=== PATIENT | female | born 1940 ===

== ENCOUNTER 2017-10-21 14:39 | Inpatient (IN) ==
[~2017-10-21 14:39] MED LIST: Metoprolol Tartrate 25 MG Tablet PO SCH
[2017-10-21] MEDS ORDERED: Zolpidem Tartrate 5 MG Tablet PO PRN (18:29)
[2017-10-21] MEDS ORDERED: Insulin Regular (For Infusion) 100 UNIT in Sodium Chlor 0.9% Inj 99 ML IV.CONT PRN (18:33)
[2017-10-21] MEDS ORDERED: Dextrose 50% in Water 50 ML Vial IV.PUSH PRN ×2 (18:33→19:48)
[2017-10-21] MEDS ORDERED: DILTIAZEM IRRIGATION SCH ×2 (18:45)
[2017-10-21] MEDS ORDERED: NITROGLYCERIN IRRIGATION SCH ×2 (18:45)
[2017-10-21] MEDS ORDERED: SODIUM CHLOR 0.9% IRRIGATION SCH ×2 (18:45)
[2017-10-21] MEDS ORDERED: Chlorhexidine 4% Topical 120 APPLIC/120 ML Bottle TOPICAL SCH (18:45)
[2017-10-21] MEDS ORDERED: Sodium Chloride 0.9% Irr Bot 500 ML, ceFAZolin Inj 500 MG IRRIGATION SCH ×2 (18:45)
[2017-10-21] MEDS ORDERED: ceFAZolin 2 GM Premix Inj 2 GM/50 ML PIGGYBACK IV.SIG SCH (19:00)
[2017-10-21] MEDS: Insulin NovoLOG Aspart Correctional Sugar Inj SQ SCH (20:49)
[2017-10-22 03:29] LABS: Bilirubin,Urine Negative (Negative); Clarity,Urine Clear (Clear); Color,Urine Yellow (Yellw/Straw); Glucose,Urine (UA) Negative (Negative); Leukocyte Esterase,Urine Trace (Negative); Mucus,Urine Few /lpf (Occasional); Nitrite,Urine Negative (Negative); Squamous Epithelial Cell,Urine 1 /hpf (0-5)
[2017-10-22] MEDS: Metoprolol Tartrate 25 MG Tablet PO SCH ×3 (03:38→21:58)
[2017-10-22 04:09] LABS: Baso % (Auto) 0.6 % (0.0-2.0); Eos # (Auto) 0.2 th/mm3 (0.0-0.4); Hematocrit 32.4 % (35.0-46.0); Hemoglobin 10.8 gm/dL (11.6-15.3); Lymph # (Auto) 1.2 th/mm3 (1.0-4.8); Lymph % (Auto) 23.1 % (9.0-44.0); Mean Corpuscular HGB Conc 33.5 % (32.0-36.0); Mean Corpuscular Volume 80.6 fL (80.0-100.0); Mean Platelet Volume 9.8 fL (7.0-11.0); Mono # (Auto) 0.5 th/mm3 (0.0-0.9); Mono % (Auto) 10.1 % (0.0-8.0); Neut # (Auto) 3.4 th/mm3 (1.8-7.7); Neut % (Auto) 63.2 % (16.0-70.0); Platelet Count 123 th/mm3 (150-450); Red Blood Count 4.02 mil/mm3 (4.00-5.30); Red Cell Distribution Width 16.2 % (11.6-17.2); White Blood Count 5.4 th/mm3 (4.0-11.0)
[2017-10-22 04:23] LABS: Alanine Aminotransferase 16 U/L (10-53); Albumin 3.3 g/dL (3.4-5.0); Anion Gap 9 meq/L (5-15); Aspartate Aminotransferase 19 U/L (15-37); Blood Urea Nitrogen 24 mg/dL (7-18); Calcium 8.4 mg/dL (8.5-10.1); Chloride 105 meq/L (98-107); Glomerular Filtration Rate 45 mL/min (>89); Glucose,Random 85 mg/dL (74-106); Potassium 3.6 meq/L (3.5-5.1); Sodium 142 meq/L (136-145)
[2017-10-22 04:25] LABS: Alkaline Phosphatase 79 U/L (45-117); Total Protein 6.2 g/dL (6.4-8.2)
[2017-10-22] MEDS: Levothyroxine 50 MCG Tablet PO SCH (06:49)
[2017-10-22] MEDS ORDERED: Furosemide 20 MG Tablet PO SCH (09:00)
[2017-10-22] MEDS ORDERED: Enoxaparin Inj 30 MG/0.3 ML Syringe SQ SCH (09:00)
[2017-10-22] MEDS ORDERED: amLODIPine 10 MG Tablet PO SCH (09:00)
[2017-10-22] MEDS: Escitalopram 10 MG Tablet PO SCH (09:53)
[2017-10-22] MEDS: Docusate Sodium 100 MG Capsule PO SCH (09:54)
[2017-10-22] MEDS: Insulin NovoLOG Aspart Correctional Sugar Inj SQ SCH ×3 (09:56→17:31)
[2017-10-22] MEDS: glipiZIDE 5 MG Tablet PO SCH ×2 (10:00→17:27)
[2017-10-22] MEDS: LORazepam 0.5 MG Tablet PO PRN ×2 (10:00→21:56)
[2017-10-22] MEDS ORDERED: Dextrose 50% in Water 50 ML Vial IV.PUSH PRN (10:19)
[2017-10-22] MEDS ORDERED: Chlorhexidine 4% Topical 120 APPLIC/120 ML Bottle TOPICAL SCH (10:30)
[2017-10-22] MEDS ORDERED: Insulin Regular (For Infusion) 100 UNIT in Sodium Chlor 0.9% Inj 99 ML IV.CONT PRN (12:00)
[2017-10-22 16:32] LABS: Hemoglobin A1c 6.2 % (4.3-6.0)
--- NOTE | 2017-10-22 16:43 | MB ---
cc: Kourtney Mejia MD, Jacqueline R ARNP DATE: 10/22/2017 HISTORY OF PRESENT ILLNESS: A 77-year-old patient of Dr. Alondra Preston, Dr. Abdi from [place]. The patient apparently has had symptoms of shortness of breath, not feeling well, had some nausea and palpitations for the past 1 month. She has a history of hypothyroidism. She has had her levothyroxine adjusted. She has been also feeling fatigued and weak for over a week. Apparently, she was very sleepy. The son brought her into Dr. Preston' office. EKG showed new onset of atrial fibrillation. She had again been complaining of the palpitations and was concerned that it may have been due to her elevated free T4. She underwent evaluation at [facility], which included 2-D echocardiogram, which showed an EF of 50-55%, mild LVH. The aortic valve was calcified with possible mild to moderate stenosis. The mitral valve had severe mitral stenosis, concern for mitral valve stenosis and severe mitral regurgitation, moderate tricuspid regurgitation. RV systolic pressure is 52. CHET showed severe mitral regurgitation, moderate with aortic valve of 1.3, mild to moderate aortic insufficiency. She underwent cardiac catheterization, which showed nonobstructive coronary disease, severe mitral regurgitation, elevated RV pressures. The right atrium was 25. Pulmonary capillary wedge pressure was 50. PA pressure 52/30. Cardiac output of 3.4 with an index of 1.7. The patient was transferred as per the request to be evaluated by Dr. Kourtney Mejia. PAST MEDICAL HISTORY: New onset of atrial fibrillation, some severe mitral regurgitation with some mitral stenosis, aortic stenosis, moderate tricuspid regurgitation, elevated PA pressures, hypothyroidism, diabetes mellitus on oral medication and some subcutaneous medication, obstructive sleep apnea. She uses a CPAP machine. Esophagitis, anxiety, hyperlipidemia, osteoarthritis, depression. PAST SURGICAL HISTORY: Left thyroidectomy in 2006, hysterectomy, bilateral total knee replacements, cholecystectomy, lymph node resection with benign pathology. ALLERGIES: NO KNOWN ALLERGY. SOCIAL HISTORY: The patient is and lives alone, has 2 children, 1 son lives nearby. No tobacco, no alcohol. FAMILY HISTORY: Mother from colon cancer. Father had an [place] at 70, of alcoholism. HOME MEDICATIONS: 1. Norvasc. 2. Lexapro. 3. Glipizide. 4. Hydralazine 5. Toujeo 5. Levothyroxine. 6. Losartan. 7. Metoprolol. 8. Omeprazole. 9. Oxybutynin. 10. Dyazide. REVIEW OF SYSTEMS: As above in the HPI, 12 systems unremarkable. PHYSICAL EXAMINATION: VITAL SIGNS: Blood pressure 160/70, heart rate of 70, afebrile. GENERAL: The patient is awake, alert in no acute distress. HEENT: Head is normocephalic, atraumatic. Pupils equal and reactive. Oral mucosa pink, moist. NECK: Supple. No JVD. HEART: Sounds S1, S2. Regular rate and rhythm. There is a systolic murmur best heard on the left sternal border, also with soft systolic murmur. LUNGS: Clear to auscultation. No wheezes, rales or rhonchi. ABDOMEN: Obese, soft, nontender, no masses or organomegaly. EXTREMITIES: No cyanosis, clubbing or edema. NEUROLOGIC: Cranial nerves 2-12 intact. LABORATORY DATA: Shows hemoglobin 10, hematocrit of 32, white cell count of 5.4, platelet count of 123. Creatinine 1.17. Sodium 142, potassium 3.6. Glucose has been elevated at 174. Hemoglobin A1c pending. AST 19, ALT 16. Urine is unremarkable. MRSA screen pending. IMAGING STUDIES: Radiological exams pending. IMPRESSION: This is a 77-year-old female with mitral valve and aortic valve disease. The films have been evaluated by Dr. Kourtney Mejia, evaluation for a mitral valve replacement versus repair and possible aortic valve replacement with MAZE procedure. The procedures, alternatives and risks discussed with the patient. The patient is agreeable to proceed. We will proceed in the a.m. MD MERCY An/ , 04:15 PM , 04:41 PM
--- NOTE | 2017-10-22 16:56 | XR ---
EXAM DATE: 10/22/2017 4:33 PM EDT AGE/SEX: 77 years / Female INDICATIONS: Evaluate for pneumonia, pneumothorax, or communicable disease. Pre op sternotomy. CLINICAL DATA: This is the patient's initial encounter. Patient reports that signs and symptoms have been present for 1 day and indicates a pain score of 0/10. MEDICAL/SURGICAL HISTORY: None. None. COMPARISON: No prior exams available for comparison. FINDINGS: The heart size is borderline enlarged. The lungs are free of focal consolidation. There is some mild prominence of interstitium which may represent some pulmonary venous hypertension. No effusion is se en. Vascular calcifications are seen. 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 CONCLUSION: Borderline cardiomegaly. Prominence of the interstitium which may represent some pulmonary venous hypertension. Electronically signed by: Jesse Ibarra MD 10/22/2017 4:54 PM EDT
[2017-10-22 17:30] LABS: INR 1.1 Ratio
--- NOTE | 2017-10-22 20:57 | US ---
EXAM DATE: 10/22/2017 8:32 PM EDT AGE/SEX: 77 years / Female INDICATIONS: Pre-op cardiac surgery. CLINICAL DATA: This is the patient's initial encounter. Patient reports that signs and symptoms have been present for 1 day and indicates a pain score of 0/10. MEDICAL/SURGICAL HISTORY: Heart disease. None. COMPARISON: No prior exams available for comparison. VELOCITY PARAMETERS: ICA/CCA Ratio: Right 1.56 , Left 1.68 ICA: Right 73 cm/sec, Left 94 cm/sec CCA: Right 47 cm/sec, Left 56 cm/sec ECA: Right 43 cm/sec, Left 35 cm/sec Vertebral: Right 45 cm/sec antegrade, Left 58 cm/sec antegrade FINDINGS: Right Carotid: There is minimal plaque in the carotid bulb.The waveforms are within normal limits. Left Carotid: There is minimal plaque in the carotid bulb. The waveforms are within normal limits. Other: None. CONCLUSION: 1. Right Internal Carotid Artery: Findings indicate <50% stenosis. 2. Left Internal Carotid Artery: Findings indicate <50% stenosis. Electronically signed by: Jesse Clemens MD 10/22/2017 8:56 PM EDT
[2017-10-23] MEDS ORDERED: Heparin - SQ 10,000 UNITS/ML Vial SQ ONE ×2 (06:38→13:21)
[2017-10-23] MEDS ORDERED: ceFAZolin 2 GM Premix Inj 2 GM/50 ML PIGGYBACK IV.SIG ONE (06:39)
[2017-10-23] MEDS ORDERED: CUST1000P IRRIGATION ONE (07:12)
[2017-10-23] MEDS ORDERED: Albumin Human 25% Inj 50 ML IV.SIG ONE (07:13)
[2017-10-23] MEDS ORDERED: Calcium Chloride Inj 1 GM/10 ML Syringe ONE (07:14)
[2017-10-23] MEDS ORDERED: Heparin 10,000 UNITS/10 ML Vial (for IV use) ONE (07:14)
[2017-10-23] MEDS ORDERED: MethylPREDNISolone Sod Succinate Inj 125 MG/2 ML Vial ONE (08:10)
[2017-10-23] MEDS ORDERED: ceFAZolin Inj 500 MG, Sodium Chloride 0.9% Irr Bot 500 ML IRRIGATION ONE ×2 (08:30)
[2017-10-23] MEDS ORDERED: Potassium Chlor 20 mEq Premix 20 MEQ/100 ML PIGGYBACK IV.SIG PRN ×2 (12:24)
[2017-10-23] MEDS ORDERED: hydrALAZINE HCl Inj 20 MG/ML Vial IV.PUSH PRN (12:24)
[2017-10-23] MEDS ORDERED: Post-op Orders (for Pharmacy) OTHER STA (12:24)
[2017-10-23] MEDS ORDERED: fentaNYL Citrate Inj 100 MCG/2 ML Ampul IV.PUSH PRN (12:24)
[2017-10-23] MEDS ORDERED: Magnesium Sulfate Inj 2 GM in Sodium Chlor 0.9% Inj 96 ML IV.SIG PRN ×4 (12:24)
[2017-10-23] MEDS ORDERED: Clevidipine Inj 25 MG/50 ML VIAL IV.CONT PRN (12:24)
[2017-10-23] MEDS ORDERED: Metoprolol Inj 5 MG/5 ML Vial IV.PUSH PRN (12:24)
[2017-10-23] MEDS ORDERED: RESP: Racemic Epinephrine 2.25% 0.5 ML Neb NEB PRN (12:24)
[2017-10-23] MEDS ORDERED: Calcium Chloride Inj 1 GM/10 ML Syringe IV.PUSH PRN (12:24)
[2017-10-23] MEDS ORDERED: Calcium Chloride Inj 1 GM in Sodium Chlor 0.9% Inj 100 ML IV.SIG PRN (12:24)
[2017-10-23] MEDS ORDERED: Dexmedetomidine Inj 200 MCG in Sodium Chlor 0.9% Inj 48 ML IV.SIG PRN (12:24)
[2017-10-23] MEDS ORDERED: Dextrose 50% in Water 50 ML Vial IV.PUSH PRN (12:24)
--- NOTE | 2017-10-23 12:55 | P.OP ---
- Preoperative Diagnosis (1) Atrial fibrillation (2) Mitral regurgitation (3) Diastolic heart failure (4) Class 3 congestive heart failure - Postoperative Diagnosis (1) Atrial fibrillation (2) Class 3 congestive heart failure (3) Diastolic heart failure (4) Mitral regurgitation Date of procedure: 10/23/17 Procedure: MVR with a 25 Magna ease tissue valve MAZE procedure (complete) CHET Implants: 25 Magna Ease tissue valve Anesthesia: GETA Surgeon: Kourtney Mejia MD Personal Trainer: Dorota Jerry Pathology: other (Left and right atrial appendages, fragments of anterior leaflet) Operation and Findings: The risks, benefits, complications, treatment options, and expected outcomes were discussed with the patient. The possibilities of reaction to medication, pulmonary aspiration, perforation of viscus, bleeding, recurrent infection, the need for additional procedures, failure to diagnose a condition, and creating a complication requiring transfusion or operation were discussed with the patient. The patient concurred with the proposed plan, giving informed consent. The site of surgery properly noted/marked. The patient was taken to Operating Room, identified as Stefano Corrales and the procedure verified as Mitral Valve Repair or Replacement, MAZE procedure, CHET. A Time Out was held and the above information confirmed. Standard monitoring lines and Bronson catheter were placed. General anesthesia was induced. The patient was prepped and draped in a sterile fashion. A median sternotomy was performed and electrocautery was used to obtain hemostasis. The pericardium was opened and a pericardial sling was created using interrupted 0 silk sutures. The patient was heparinized for cardiopulmonary bypass. The heart was instrumented for cardiopulmonary bypass with bicaval cannulation and snares placed around the IVC and SVC. Antegrade Custodiol cardioplegia was employed. The patient was placed on cardiopulmonary bypass. The left atrrial appendage was resected using a surgical stapler. The pulmonary vein lesions were performed using an Atricure device. An aortic cross-clamp was applied and the heart was arrested using Custodiol cardioplegia. The heart was isolated by snaring the IVC and SVC. The right atrial appendage was amputated and RF ablation used to perform the lesions laterally and medially. The right atrial incision was placed laterally between the SVC and IVC. The Atricure was used to create the septal lesion. Cryolesions were placed on the tricuspid annulus and the isthmus was treated with the Atricure. The intra-atrial groove was dissected out using electrocautery. The left atrium was entered under direct vision and the atriotomy was extended inferiorly and posteriorly. The mitral valve was exposed using an automatic retractor. The pulmonary vein connecting lesions were performed as well as the PV to mitral annulus. A cryo lesion was placed on the mitral annulus to complete the MAZE. 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 with posterolateral calcification and leaflet retraction. The surrounding annular tissue was very friable. The valve was analyzed and sized to a 25 Magna Ease tissue valve which was seated using several interrupted 2-0 Tycron pledgeted horizontal mattress sutures. After securing the sutures, the left atrium was closed using a running 4-0 Prolene suture and a small catheter was left in the left atrium to assist in venting the heart. The right atrial suture lines were closed using a running 4-0 Prolene. The patient was systemically rewarmed. The heart was vigorously deaired with a clamp on. The patient was placed in Trendelenburg's position. The clamp was removed, deairing continued. Intraoperative CHET was used to assess intracardiac air and the mitral valve repair. Once the air was evacuated, the vent in the left atrium was removed and the suture line was secured. The heart was loaded and allowed to eject and the mitral valve was analyzed by CHET. The valve was well-seated with 1+ regurgitation centrally. The aortic valve was also viewed and there was no change from prior to beginning the procedure. The patient was weaned from cardiopulmonary bypass. There was worrisome bleeding from the suture lines so the patient was briefly placed back on CPB until adequate hemostasis was obtained. The patient was again weaned from CPB. Protamine was given. There was no adverse reaction. Decannulation was carried out without incident. Wound was checked for hemostasis which was obtained using electrocautery. A 36 Macedonian and 24F Toby mediastinal tubes were placed and secured to the skin with 0 silk suture. The sternum was closed with stainless steel wire. The fascia was closed with 1. PDS. The subcutaneous tissue was closed using a running 2-0 Vicryl suture. The skin was closed with 4-0 Monocryl. Sterile dressings were placed. At the end of the operation, all sponge, instruments, and needle counts were correct. The patient was transferred to the CVICU in stable condition. Findings: Rheumatic MV with calcification. The patient was in NSR following the MAZE procedure. LV function was preserved. XC: 111 min CPB: 149 min Drains: mediastinal x 2 Specimens: left and right atrial appendages, anterior leaflet fragments Implants: 25 Magna Ease tissue valve Complications: none Disposition: to CVICU in stable condition
[2017-10-23] MEDS: Insulin Regular (For Infusion) 100 UNIT in Sodium Chlor 0.9% Inj 99 ML IV.CONT PRN (13:00)
[2017-10-23] MEDS ORDERED: Sodium Bicarbonate 8.4% Inj 50 MEQ/50 ML Syringe ONE (13:12)
[2017-10-23] MEDS ORDERED: fentaNYL Citrate Inj 250 MCG/5 ML Ampul ONE ×2 (13:16→13:17)
[2017-10-23] MEDS ORDERED: Phenylephrine/NS 1000 MCG/10ML Syringe IV.PUSH ONE (13:21)
[2017-10-23] MEDS ORDERED: Norepinephrine Inj 4 MG/4 ML Ampul IV.CONT ONE (13:21)
[2017-10-23] MEDS ORDERED: Normosol-R pH 7.4 Inj 2,000 ML IV.CONT ONE (13:21)
[2017-10-23] MEDS ORDERED: Dexmedetomidine Inj 200 MCG/2 ML Vial IV.CONT ONE (13:21)
[2017-10-23] MEDS ORDERED: Sodium Chlor 0.9% Inj 500 ML IV.SIG ONE ×2 (13:21)
[2017-10-23] MEDS ORDERED: Propofol Inj 500 MG/50 ML Vial IV.SIG ONE (13:21)
[2017-10-23] MEDS ORDERED: Protamine Sulfate Inj 250 MG/25 ML Vial IV.CONT ONE (13:21)
[2017-10-23] MEDS ORDERED: Glycopyrrolate Inj 1 MG/5 ML Syringe IV.PUSH ONE (13:21)
[2017-10-23] MEDS ORDERED: Dexmedetomidine Inj 200 MCG in Sodium Chlor 0.9% Inj 48 ML IV.CONT PRN (13:30)
[2017-10-23 13:49] LABS: Hematocrit 32.7 % (35.0-46.0); Hemoglobin 10.5 gm/dL (11.6-15.3); Mean Corpuscular Hemoglobin 26.5 pg (27.0-34.0); Mean Corpuscular Volume 82.6 fL (80.0-100.0); Mean Platelet Volume 9.8 fL (7.0-11.0); Platelet Count 190 th/mm3 (150-450); Red Blood Count 3.96 mil/mm3 (4.00-5.30); Red Cell Distribution Width 16.1 % (11.6-17.2); White Blood Count 23.6 th/mm3 (4.0-11.0)
[2017-10-23] MEDS: Potassium Chlor 20 mEq Premix 20 MEQ/100 ML PIGGYBACK IV.SIG PRN ×2 (13:53→16:16)
--- NOTE | 2017-10-23 13:55 | P.PNCA ---
- Note Subjective/Hospital Course: A 77-year-old patient of Dr. Alondra Preston, Dr. Abdi from [place]. The patient apparently has had symptoms of shortness of breath, not feeling well, had some nausea and palpitations for the past 1 month. She has a history of hypothyroidism. She has had her levothyroxine adjusted. She has been also feeling fatigued and weak for over a week. Apparently, she was very sleepy. The son brought her into Dr. Preston' office. EKG showed new onset of atrial fibrillation. She had again been complaining of the palpitations and was concerned that it may have been due to her elevated free T4. She underwent evaluation at [facility], which included 2-D echocardiogram, which showed an EF of 50-55%, mild LVH. The aortic valve was calcified with possible mild to moderate stenosis. The mitral valve had severe mitral stenosis, concern for mitral valve stenosis and severe mitral regurgitation, moderate tricuspid regurgitation. RV systolic pressure is 52. CHET showed severe mitral regurgitation, moderate with aortic valve of 1.3, mild to moderate aortic insufficiency. She underwent cardiac catheterization, which showed nonobstructive coronary disease, severe mitral regurgitation, elevated RV pressures. The right atrium was 25. Pulmonary capillary wedge pressure was 50. PA pressure 52/30. Cardiac output of 3.4 with an index of 1.7. The patient was transferred as per the request to be evaluated by Dr. Kourtney Mejia. PAST MEDICAL HISTORY: New onset of atrial fibrillation, some severe mitral regurgitation with some mitral stenosis, aortic stenosis, moderate tricuspid regurgitation, elevated PA pressures, hypothyroidism, diabetes mellitus, obstructive sleep apnea. She uses a CPAP machine. sts data discussed with pt RISK SCORES About the STS Risk Calculator Procedure: MV Replacement Only Risk of Mortality: 7.448% Morbidity or Mortality: 43.751% Long Length of Stay: 25.111% Short Length of Stay: 6.622% Permanent Stroke: 1.833% Prolonged Ventilation: 32.817% DSW Infection: 0.956% Renal Failure: 16.617% Reoperation: 12.489% surgery 10/23 MVR with a 25 Magna ease tissue valve MAZE procedure (complete) CHET Objective: Vital Signs - 24 hr 10/22/17 14:00 10/22/17 15:00 10/22/17 16:00 Temperature 98.4 F Pulse Rate 62 72 70 Respiratory Rate Blood Pressure 134/60 Pulse Oximetry 95 10/22/17 17:00 10/22/17 18:00 10/22/17 20:00 Temperature Pulse Rate 63 54 L 52 L Respiratory Rate Blood Pressure Pulse Oximetry 10/22/17 21:00 10/22/17 22:00 10/22/17 23:00 Temperature 97.6 F Pulse Rate 52 L 54 L 67 Respiratory Rate 18 Blood Pressure 157/70 H Pulse Oximetry 95 10/23/17 00:00 10/23/17 01:00 10/23/17 02:00 Temperature Pulse Rate 56 L 56 L 50 L Respiratory Rate Blood Pressure Pulse Oximetry 10/23/17 03:00 10/23/17 04:00 10/23/17 05:00 Temperature 97.9 F Pulse Rate 54 L 56 L 58 L Respiratory Rate 20 Blood Pressure 162/71 H Pulse Oximetry 97 10/23/17 06:00 Temperature Pulse Rate 52 L Respiratory Rate Blood Pressure Pulse Oximetry Labs: Laboratory Results - last 12 hr 10/22/17 10/23/17 10/23/17 13:32 11:39 13:00 WBC 23.6 H RBC 3.96 L Hgb 10.5 L Hct 32.7 L MCV 82.6 MCH 26.5 L MCHC 32.0 RDW 16.1 Plt Count 190 D MPV 9.8 Blood Type O Positive Blood Type Recheck Required Antibody Screen Negative MTS Gel Crossmatch See Detail Bld Prod Order Comment Result Diagrams: 10/23/17 13:00 10/22/17 03:42
--- NOTE | 2017-10-23 13:57 | XR ---
EXAM DATE: 10/23/2017 1:32 PM EDT AGE/SEX: 77 years / Female INDICATIONS: Cardiac disease. Status post Mitral valve repair. CLINICAL DATA: This is the patient's initial encounter. Patient reports that signs and symptoms have been present for 2 days and indicates a pain score of Nonresponsive. MEDICAL/SURGICAL HISTORY: None. None. COMPARISON: [facility] [place], CHEST 2V PA&LAT, 10/22/2017. . FINDINGS: Support apparatus in good position. Right chest tube noted. Mitral Mitral valve prosthesis evident Heart is enlarged. Mild interstitial edema is present. There is consolidation or pleural effusion. CONCLUSION: Cardiomegaly with mild interstitial edema. Mitral valve prosthesis is evident. Electronically signed by: Andrew Graves MD 10/23/2017 1:55 PM EDT
[2017-10-23] MEDS ORDERED: FACTOR VIIA IV.PUSH ONE (14:00)
[2017-10-23 14:06] LABS: INR 1.4 Ratio; Prothrombin Time 14.4 sec (9.8-11.6)
[2017-10-23 14:10] LABS: Activated Partial Thrombo Time 31.1 sec (24.3-30.1)
[2017-10-23] MEDS: Levothyroxine 50 MCG Tablet PO SCH (15:49)
[2017-10-23] MEDS: glipiZIDE 5 MG Tablet PO SCH (15:49)
[2017-10-23] MEDS: Docusate Sodium 100 MG Capsule PO SCH (15:51)
[2017-10-23] MEDS: Albumin Human 5% Inj 250 ML IV.SIG PRN ×2 (16:00→17:57)
[2017-10-23] MEDS ORDERED: Albumin Human 5% Inj 500 ML IV.SIG ONE ×2 (19:19→20:00)
[2017-10-23] MEDS ORDERED: Calcium Chloride Inj 1 GM/10 ML Syringe IV.PUSH ONE (19:30)
--- NOTE | 2017-10-23 19:45 | P.CONCC ---
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 who presented for elective Mitral valve replacement with MAZE procedure. post-operative course complicated by vasopressor requirement and oliguria. I was asked to see the patient in consultation for hemodynamic management. patient is intubated and no information is available from her. ROS unobtainable. on my evaluation, CVP 9, lactate has been clearing since surgery slowly, from peak of 3.8 down to 2.2 on recent abg. however, uop is still 10cc/hr and ScVO2 from central venous line is 48%. extremities are warm and well-perfused with adequate capillary refill. chest tubes have 70cc blood from last hour with evidence of clots in the tubing. patient wakens and follows commands by squeezing hands and nodding head. Review of Systems unobtainable due to endotracheal tube PMFSH - Medical / Surgical Hx Neg / Unobtainable Medical Problems Denied: Unable to Obtain Surgical History: Unable to Obtain - Tobacco History Second Hand Smoke Exposure: Yes Smoking Status: Never smoker - Alcohol History How Often Do You Have a Drink Containing Alcohol: Never - Substance Use History Substance History: No History of Abuse - Immunization History Tetanus Immunization: <5 Years Hx Influenza Vaccine This Season: Yes Medications and Allergies Active Medications: Active Medications Acetaminophen (Tylenol) 650 mg PO Q6H PRN PRN Reason: PAIN SCALE 1 TO 2 Hydrocodone Bitart/Acetaminophen ([place] 5/325) 1 tab PO Q4H PRN PRN Reason: PAIN 3-5 Albuterol (Duoneb Neb (Prn)) 1 ampul NEB Q2HR NEB PRN PRN Reason: WHEEZING Amiodarone HCl (Cordarone) 400 mg PO Q8HR [facility] Aspirin (Aspirin Chew) 81 mg PO DAILY [facility] Calcium Chloride (Calcium Chloride Inj) 0.5 gm IV.PUSH UNSCH PRN PRN Reason: SEE LABEL COMMENTS Chlorhexidine Gluconate (Hibiclens 4% Topical) 1 applicatio TOPICAL OCCUPATIONAL THER [facility] Stop: 10/27/17 18:33 Chlorhexidine Gluconate (Hibiclens 4% Topical) 1 applicatio TOPICAL OCCUPATIONAL THER [facility] Stop: 10/28/17 10:20 Sodium Chloride 500 ml/ (Cefazolin Sodium 500 mg) 0 ml IRRIGATION OCCUPATIONAL THER [facility] Stop: 10/27/17 18:35 Last Admin: 10/23/17 09:08 Dose: 500 irrig.soln Dextrose (D50w Vial) 50 ml IV.PUSH UNSCH PRN PRN Reason: x 2 per Hypoglycemia Protocol Docusate Sodium (Colace) 100 mg PO DAILY [facility] Last Admin: 10/23/17 15:51 Dose: Not Given Epinephrine (Racepinephrine 2.25% Neb) 0.5 ml NEB UNSCH X1 PRN PRN Reason: STRIDOR Stop: 10/24/17 12:23 Escitalopram Oxalate (Lexapro) 10 mg PO DAILY [facility] Last Admin: 10/22/17 09:53 Dose: 10 mg Fentanyl Citrate (Fentanyl Inj) 25 mcg IV.PUSH Q1H PRN PRN Reason: BREAKTHROUGH PAIN Glipizide (Glucotrol) 5 mg PO BID@0700,1800 [facility] Last Admin: 10/23/17 15:49 Dose: Not Given Hydralazine HCl (Apresoline) 100 mg PO BID [facility] Last Admin: 10/22/17 21:57 Dose: 100 mg Cefazolin Sodium/Dextrose (Ancef 2 Gm Premix Inj) 2 gm in 50 mls @ 100 mls/hr IV.SIG OCCUPATIONAL THER [facility] Stop: 10/27/17 18:35 Last Infusion: 10/23/17 08:23 Dose: Infused Acetaminophen (Ofirmev Inj) 1,000 mg in 100 mls @ 400 mls/hr IV.SIG Q6H [facility] Stop: 10/24/17 08:14 Last Infusion: 10/23/17 15:25 Dose: Infused Cefazolin Sodium 1,000 mg/ (Sodium Chloride) 100 mls @ 200 mls/hr IV.SIG Q8H [facility] Stop: 10/25/17 04:29 Clevidipine (Cleviprex Inj) 25 mg in 50 mls @ 2 mls/hr IV.CONT TITRATE PRN; Protocol PRN Reason: Per protocol Insulin Human Regular 100 unit (/ Sodium Chloride) 100 mls @ 3 mls/hr IV.CONT TITRATE PRN; Protocol PRN Reason: See Protocol Last Titration: 10/23/17 15:00 Dose: 3 units/hr, 3 mls/hr Lactated Ringer's (Lr 1000 Ml Inj) 500 mls @ 500 mls/hr IV.SIG .Q1H PRN PRN Reason: SEE LABEL COMMENTS Magnesium Sulfate Inj 2 gm/ (Sodium Chloride) 100 mls @ 50 mls/hr IV.SIG UNSCH PRN PRN Reason: SEE LABEL COMMENTS Magnesium Sulfate Inj 2 gm/ (Sodium Chloride) 100 mls @ 100 mls/hr IV.SIG UNSCH PRN PRN Reason: SEE LABEL COMMENTS Potassium Chloride (Kcl 20 Meq Premix Inj) 20 meq in 100 mls @ 50 mls/hr IV.SIG UNSCH PRN PRN Reason: SEE LABEL COMMENTS Potassium Chloride (Kcl 20 Meq Premix Inj) 20 meq in 100 mls @ 50 mls/hr IV.SIG UNSCH PRN PRN Reason: SEE LABEL COMMENTS Dexmedetomidine HCl 200 mcg/ (Sodium Chloride) 50 mls @ 4.65 mls/hr IV.CONT TITRATE PRN; Protocol PRN Reason: Per Protocol Last Titration: 10/23/17 14:45 Dose: 0 mcg/kg/hr, 0 mls/hr Norepinephrine Bitartrate (Levophed-Dextrose 4 Mg/250 Ml Drip) 4 mg in 250 mls @ 18.75 mls/hr IV.SIG TITRATE PRN; Protocol PRN Reason: See protocol Levothyroxine Sodium (Synthroid) 50 mcg PO DAILY@0600 [facility] Last Admin: 10/23/17 15:49 Dose: Not Given Lorazepam (Ativan) 0.5 mg PO TID PRN PRN Reason: ANXIETY Last Admin: 10/22/17 21:56 Dose: 0.5 mg Metoprolol Tartrate (Lopressor) 12.5 mg PO OCCUPATIONAL THER [facility] Stop: 10/27/17 18:35 Last Admin: 10/23/17 07:15 Dose: 12.5 mg Metoprolol Tartrate (Lopressor Inj) 2.5 mg IV.PUSH Q1H PRN PRN Reason: SEE LABEL COMMENTS Ondansetron HCl (Zofran Odt) 4 mg PO Q6H PRN PRN Reason: NAUSEA OR VOMITING Oxybutynin Chloride (Ditropan) 5 mg PO DAILY [facility] Last Admin: 10/23/17 15:51 Dose: Not Given Pantoprazole Sodium (Protonix) 40 mg PO DAILY@06 [facility] Phenylephrine HCl (Neosynephrine Inj) 0.1 mg IV.PUSH UNSCH PRN PRN Reason: SEE LABEL COMMENTS Potassium Chloride (Klor-Con 10) 10 meq PO DAILY [facility] Last Admin: 10/22/17 09:54 Dose: 10 meq Potassium Chloride (K-Dur) 20 meq PO PRN PRN PRN Reason: SEE LABEL COMMENTS Potassium Chloride (K-Dur) 40 meq PO PRN PRN PRN Reason: SEE LABEL COMMENTS Sodium Bicarbonate (Sodium Bicarbonate 8.4% Inj) 100 meq IV.PUSH UNSCH PRN PRN Reason: SEE LABEL COMMENTS Sodium Bicarbonate (Sodium Bicarbonate 8.4% Inj) 50 meq IV.PUSH UNSCH PRN PRN Reason: SEE LABEL COMMENTS Last Admin: 10/23/17 14:00 Dose: 50 meq Sodium Chloride (Ns Flush) 2 ml IV.FLUSH BID [facility] Sodium Chloride (Ns Flush) 2 ml IV.FLUSH UNSCH PRN PRN Reason: FLUSH AFTER USING IV ACCESS Zolpidem Tartrate (Ambien) 5 mg PO HS PRN PRN Reason: INSOMNIA Allergies Allergy/AdvReac Type Severity Reaction Status Date / Time No Known Allergies Allergy Unverified 10/21/17 17:06 Home Medications Medication Instructions Recorded Confirmed Type losartan 100 mg PO DAILY 10/21/17 10/21/17 History Physical Exam Vital signs: Vital Signs 10/22/17 20:00 10/22/17 21:00 10/22/17 22:00 Temperature Pulse Rate 52 L 52 L 54 L Respiratory Rate Blood Pressure Pulse Oximetry 10/22/17 23:00 10/23/17 00:00 10/23/17 01:00 Temperature 36.4 C Pulse Rate 67 56 L 56 L Respiratory Rate 18 Blood Pressure 157/70 H Pulse Oximetry 95 10/23/17 02:00 10/23/17 03:00 10/23/17 04:00 Temperature 36.6 C Pulse Rate 50 L 54 L 56 L Respiratory Rate 20 Blood Pressure 162/71 H Pulse Oximetry 97 10/23/17 05:00 10/23/17 06:00 10/23/17 13:00 Temperature 36.5 C Pulse Rate 58 L 52 L 67 Respiratory Rate 14 Blood Pressure 115/74 Pulse Oximetry 92 L 10/23/17 14:16 10/23/17 14:31 10/23/17 14:37 Temperature 36.6 C 36.4 C 36.9 C Pulse Rate 60 59 L 58 L Respiratory Rate 14 14 14 Blood Pressure 121/62 102/58 L 118/63 Pulse Oximetry 98 10/23/17 15:00 10/23/17 17:00 Temperature 36.9 C Pulse Rate 58 L Respiratory Rate 14 16 Blood Pressure 101/67 Pulse Oximetry 99 Intake & Output 10/23/17 10/23/17 10/24/17 06:59 18:59 06:59 Intake Total 240 / 240 3860 / 3860 Output Total 1800 / 1800 Balance 240 / 240 2060 / 2060 Weight 93 kg Intake: IV 610 / 610 Ofirmev Inj 1,000 mg In 100 ml 100 / 100 @ 400 mls/hr IV.SIG Q6H [facility] Rx# :[id number] Buminate 5% Inj 250 ML @ 250 250 / 250 mls/hr IV.SIG UNSCH PRN Rx#: [id number] Calcium Chloride Inj 1 GM In NS 110 / 110 Inj 100 ML @ 100 mls/hr IV.SIG UNSCH PRN Rx#:[id number] KCl 20 mEq Premix Inj 20 meq In 100 / 100 100 ml @ 50 mls/hr IV.SIG UNSCH PRN Rx#:[id number] Ancef 2 GM Premix Inj 2 gm In 50 / 50 50 ml @ 100 mls/hr IV.SIG OCCUPATIONAL THER [facility] Rx#:[id number] Oral 240 / 240 Anesthesia Amount 2500 / 2500 Intake (Blood Product) Amt 0 / 0 Rbc As-3 Leukoreduced Unit 0 / 0 [id number] Cell Saver Amount 750 / 750 Output: Estimated Blood Loss 1500 / 1500 Urine Amount (Catheter) 300 / 300 Indwelling Temp Sensing 300 / 300 Catheter Other: Other Intake Source Rbc As-3 Leukoreduced Unit Saline Solution [id number] # Voids 4 Date of Last Bowel Movement 10/18/17 # Bowel Movements 2 Narrative: GENERAL: Elderly female, lying in bed, intubated, sedated, arousable HEENT: Normocephalic. Atraumatic. Pupils equal, round, reactive, conjugate. Mucous membranes are moist NECK: Trachea is midline. There is no JVD. Right IJ sheath in place, dressing clean dry and intact. CHEST: Intubated. PSV 10/5/40 percent. SPO2 100%. Sternal wound VAC in place which appears clean and dry. 2 chest tubes exit subxiphoid with a minimal amount of sanguinous output. CARDIOVASCULAR: Normal rate of 66, regular rhythm. Appears sinus. CVP of 9 ABDOMEN: Soft, nontender, nondistended. No guarding. MUSCULOSKELETAL: Pulses 2+. No peripheral edema. Extremities are warm and well -perfused NEUROLOGICAL: RASS -2. Awakens to voice and follows simple commands by squeezing hands nodding head. Moves all extremities. No focal deficits. - Urinary Catheter Management Indwelling Temp Sensing Catheter Cath placed during this visit: yes Reason for continuing: Hourly intake/output Insertion date: 10/23/17 Insertion time: 07:50 Assessment and Plan - Assessment and Plan Plan: Assessment: 77-year-old female postop day 0 status post mitral valve replacement with maze procedure. Some evidence of poor cardiac output by oliguria and low SCV O2. However lactate continues to clear and clinically appears warm and adequately perfused. Will add 500 cc of additional 5% albumin as she is at this point likely still volume dependent. We will trend serial ABGs and closely monitor urine output. Critically ill with life-threatening hemodynamic changes associated with perioperative myocardial stunning Active problems: Status post mitral valve replacement with maze procedure Perioperative hypotension Cardiogenic shock by Foster cardiac index calculations Lactic acidosis Oliguria Plan: 500 cc of 5% albumin. We will continue to wean mechanical ventilation towards extubation Trend ABG May require the use of inotropes, although at this point will hold off for another few hours and trend hemodynamic data Trend CVP Trend SCV O2 Trend urine output hourly Trend lactates He is norepinephrine for goal map greater than 65 This is been discussed with Dr. Mejia who agrees with plan. Critical CARE time: 37 minutes, exclusive of separately billable procedures
[2017-10-24 03:07] LABS: Baso % (Auto) 0.1 % (0.0-2.0); Hematocrit 26.4 % (35.0-46.0); Hemoglobin 8.5 gm/dL (11.6-15.3); Lymph # (Auto) 1.5 th/mm3 (1.0-4.8); Lymph % (Auto) 10.9 % (9.0-44.0); Mean Corpuscular HGB Conc 32.1 % (32.0-36.0); Mean Corpuscular Hemoglobin 26.8 pg (27.0-34.0); Mean Corpuscular Volume 83.3 fL (80.0-100.0); Mean Platelet Volume 10.3 fL (7.0-11.0); Mono # (Auto) 0.7 th/mm3 (0.0-0.9); Mono % (Auto) 4.8 % (0.0-8.0); Neut # (Auto) 11.4 th/mm3 (1.8-7.7); Neut % (Auto) 84.2 % (16.0-70.0); Platelet Count 108 th/mm3 (150-450); Red Blood Count 3.17 mil/mm3 (4.00-5.30); White Blood Count 13.5 th/mm3 (4.0-11.0)
[2017-10-24 03:53] LABS: Calcium 9.1 mg/dL (8.5-10.1); Carbon Dioxide 21.2 meq/L (21.0-32.0); Magnesium 2.5 mg/dL (1.5-2.5); Potassium 5.1 meq/L (3.5-5.1)
[2017-10-24] MEDS ORDERED: Sodium Chlor 0.9% Inj 250 ML IV.SIG SCH (06:00)
[2017-10-24] MEDS: Amiodarone 200 MG Tablet PO SCH ×5 (06:12→21:23)
[2017-10-24] MEDS: Levothyroxine 50 MCG Tablet PO SCH (06:13)
--- NOTE | 2017-10-24 06:20 | XR ---
EXAM DATE: 10/24/2017 5:58 AM EDT AGE/SEX: 77 years / Female INDICATIONS: Status post CABG. CLINICAL DATA: This is the patient's subsequent encounter. Patient reports that signs and symptoms h ave been present for 2 days and indicates a pain score of 4/10. MEDICAL/SURGICAL HISTORY: Cardiovascular disease. CABG. COMPARISON: [facility], CHEST 1V SINGLE AP, 10/23/2017. . FINDINGS: There has been interval extubation and removal of nasogastric tube. Right neck central line remains i n good position. Aeration is improved with decrease in perihilar parenchymal opacities. Cardiac conto urs grossly stable. CONCLUSION: Interval extubation. Continued improvement in aeration. Electronically signed by: Jesse Reyes MD 10/24/2017 6:19 AM EDT
[2017-10-24] MEDS: Milrinone Inj 20 MG in Sodium Chlor 0.9% Inj 80 ML IV.CONT SCH ×2 (06:23→17:15)
[2017-10-24] MEDS: Insulin Regular (For Infusion) 100 UNIT in Sodium Chlor 0.9% Inj 99 ML IV.CONT PRN (06:26)
[2017-10-24] MEDS: Escitalopram 10 MG Tablet PO SCH ×2 (07:05→08:57)
[2017-10-24] MEDS: glipiZIDE 5 MG Tablet PO SCH ×3 (07:05→17:26)
[2017-10-24] MEDS: Docusate Sodium 100 MG Capsule PO SCH (08:57)
--- NOTE | 2017-10-24 10:35 | P.PNCC ---
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 who presented for elective Mitral valve replacement with MAZE procedure. post-operative course complicated by vasopressor requirement and oliguria. I was asked to see the patient in consultation for hemodynamic management. patient is intubated and no information is available from her. ROS unobtainable. on my evaluation, CVP 9, lactate has been clearing since surgery slowly, from peak of 3.8 down to 2.2 on recent abg. however, uop is still 10cc/hr and ScVO2 from central venous line is 48%. extremities are warm and well-perfused with adequate capillary refill. chest tubes have 70cc blood from last hour with evidence of clots in the tubing. patient wakens and follows commands by squeezing hands and nodding head. Subjective 10/24: Remains on 4 L nasal cannula. 1700 cc ss output from chest tube -20 cm H2O. Currently receiving PRBC and leuko-reduced platelets. 50 cc urine output past 2 hours. On milrinone drip. Awake and alert Objective Vital Signs / I&O: Vital Signs 10/23/17 13:00 10/23/17 13:45 10/23/17 14:16 Temperature 98.6 F 98.6 F 97.8 F Pulse Rate 67 60 Respiratory Rate 14 14 Blood Pressure 115/74 121/62 Pulse Oximetry 92 L 10/23/17 14:31 10/23/17 14:37 10/23/17 15:00 Temperature 97.6 F 98.4 F 98.4 F Pulse Rate 59 L 58 L 58 L Respiratory Rate 14 14 14 Blood Pressure 102/58 L 118/63 101/67 Pulse Oximetry 98 99 10/23/17 16:00 10/23/17 17:00 10/23/17 18:20 Temperature 98.6 F 98.6 F Pulse Rate Respiratory Rate 16 Blood Pressure Pulse Oximetry 10/23/17 19:00 10/23/17 20:34 10/23/17 20:44 Temperature 98.9 F Pulse Rate 63 Respiratory Rate 16 Blood Pressure 113/54 L Pulse Oximetry 98 98 98 10/23/17 23:00 10/24/17 03:00 10/24/17 05:50 Temperature 99.1 F 99 F 97.7 F Pulse Rate 63 63 60 Respiratory Rate 12 12 16 Blood Pressure 132/62 118/61 129/81 Pulse Oximetry 98 96 95 10/24/17 07:00 10/24/17 09:51 Temperature 97.6 F Pulse Rate 64 Respiratory Rate 18 Blood Pressure 136/72 Pulse Oximetry 94 L 92 L Intake & Output 10/23/17 10/24/17 10/24/17 18:59 06:59 18:59 Intake Total 6049 / 6049 875 / 875 135 / 135 Output Total 2770 / 2770 214 / 214 Balance 3279 / 3279 661 / 661 135 / 135 Weight 98 kg Intake: IV 799 / 799 395 / 395 135 / 135 Precedex Inj 200 MCG In NS Inj 34 / 34 48 ML @ 0.2 MCG/KG/HR 4.65 mls/ hr IV.CONT TITRATE PRN Rx#: [id number] NovoLIN R (IV Infusion) 100 55 / 55 45 / 45 35 / 35 UNIT In NS Inj 99 ML @ 3 UNITS/ HR 3 mls/hr IV.CONT TITRATE PRN Rx#:[id number] Ofirmev Inj 1,000 mg In 100 ml 100 / 100 100 / 100 @ 400 mls/hr IV.SIG Q6H [facility] Rx# :[id number] Buminate 5% Inj 250 ML @ 250 250 / 250 250 / 250 mls/hr IV.SIG UNSCH PRN Rx#: [id number] Calcium Chloride Inj 1 GM In NS 110 / 110 Inj 100 ML @ 100 mls/hr IV.SIG UNSCH PRN Rx#:[id number] KCl 20 mEq Premix Inj 20 meq In 200 / 200 100 ml @ 50 mls/hr IV.SIG UNSCH PRN Rx#:[id number] Ancef 2 GM Premix Inj 2 gm In 50 / 50 50 ml @ 100 mls/hr IV.SIG LOCOMOTIVE PIPE FITTER [facility] Rx#:[id number] Ancef Inj 1,000 MG In NS Inj 100 / 100 100 ML @ 200 mls/hr IV.SIG Q8H [facility] Rx#:[id number] Oral 480 / 480 Anesthesia Amount 2500 / 2500 Other 1999 / 1999 Intake (Blood Product) Amt 0 / 0 0 / 0 0 / 0 Rbc As-3 Leukoreduced Unit 0 / 0 0 / 0 [id number] Rbc As-3 Leukoreduced Unit 0 / 0 [id number] Cell Saver Amount 750 / 750 Output: Estimated Blood Loss 1500 / 1500 Urine Amount (Catheter) 420 / 420 214 / 214 Indwelling Temp Sensing 420 / 420 214 / 214 Catheter Chest Tube Drainage 850 / 850 Mediastinal 850 / 850 Other: Other Intake Source Saline Solution Rbc As-3 Leukoreduced Unit Saline Solution [id number] # Bowel Movements 0 Result Diagrams: 10/24/17 11:08 10/24/17 11:08 Imaging: Carotid Doppler Study 10/22/17 10:20 CONCLUSION: 1. Right Internal Carotid Artery: Findings indicate <50% stenosis. 2. Left Internal Carotid Artery: Findings indicate <50% stenosis. Chest X-Ray 10/22/17 10:20 CONCLUSION: Borderline cardiomegaly. Prominence of the interstitium which may represent some pulmonary venous hypertension. Chest X-Ray 10/23/17 12:30 CONCLUSION: Cardiomegaly with mild interstitial edema. Mitral valve prosthesis is evident. Chest X-Ray 10/24/17 05:00 CONCLUSION: Interval extubation. Continued improvement in aeration. Objective Remarks: GENERAL: Elderly female, lying in bed, intubated, sedated, arousable HEENT: Normocephalic. Atraumatic. Pupils equal, round, reactive, conjugate. Mucous membranes are moist NECK: Trachea is midline. There is no JVD. Right IJ sheath in place, dressing clean dry and intact. CHEST: Intubated. PSV 10/5/40 percent. SPO2 100%. Sternal wound VAC in place which appears clean and dry. 2 chest tubes exit subxiphoid with a minimal amount of sanguinous output. CARDIOVASCULAR: Normal rate of 66, regular rhythm. Appears sinus. CVP of 9 ABDOMEN: Soft, nontender, nondistended. No guarding. MUSCULOSKELETAL: Pulses 2+. No peripheral edema. Extremities are warm and well -perfused NEUROLOGICAL: RASS -2. Awakens to voice and follows simple commands by squeezing hands nodding head. Moves all extremities. No focal deficits. Assessment and Plan - Assessment and Plan Plan: Neuro/Psych: Depressive disorder NOS Continue Escitalopram 10 mg daily/home medication for depression Acetaminophen 650 mg every 6 hours as needed fever Hydrocodone/acetaminophen 5/325 1 tablet every 4 hours as needed pain. Fentanyl 25 mg IV every 8 hours as needed breakthrough pain. Zolpidem 5 mg at night as needed insomnia CV: Status post mitral valve replacement with maze procedure day #[address] Mejia Cardiogenic shock by Foster cardiac index calculations Lactic acidosis Essential hypertension Paroxysmal atrial fibrillation History of diastolic heart failure Postoperative management per CT surgery Amiodarone 400 mg 3 times daily initiated by CT surgery Aspirin 81 mg daily to be continued Hydralazine 100 mg twice daily to be continued On losartan 100 mg daily at home? Currently on hold Serial lactates until cleared. Resp: Nasal cannula to maintain saturations greater than equal to 92%. Incentive spirometry while awake As needed albuterol/ipratropium aerosols every 2 hours as needed dyspnea Chest tube -20 cm H2O 1700 cc SS GI: Hypoalbuminemia Cardiac/diabetic diet per CT surgery Pantoprazole for GI prophylaxis Docusate sodium 100 mg twice daily for bowel regimen : Incontinence Continue oxybutynin 5 mg daily/home medication Maintain Bronson catheter Endo: Diabetes mellitus hemoglobin A1c 6.2 Hypothyroidism Currently on insulin drip at 8 units an hour Resume glipizide 5 mg twice daily/home medication Resume levothyroxine 50 mcg by mouth daily. Check TSH Renal: Acute kidney injury Oliguria Monitor urine output Accurate I's and O's Renal ultrasound/urine electrolytes and eosinophils pending Heme: Leukocytosis Normocytic anemia Thrombocytopenia Elevated PTT Low fibrinogen Transfuse one PRBC with 1 pack platelets since midnight. Recheck at 1500 Monitor CBC and coags daily. Follow trends ID: Postoperative antibiotics with cefazolin 1 g IV every 8 hours [address] surgery FEN: Replace electrolytes as clinically indicated MSK: Elevated BMI Weight loss encouraged. PT evaluate and treat Access -Right IJ Cordis with dual-lumen catheter day #2 placed in OR 10/23 Prophylaxis -GI -pantoprazole -DVT -TEDS - pharmacological proph when ok with CTS Level 2 follow-up
--- NOTE | 2017-10-24 11:09 | P.PNCA ---
- Note CVT: Post Op Day #: 1 Subjective/Hospital Course: A 77-year-old patient of Dr. Alondra Preston, Dr. Abdi from [place]. The patient apparently has had symptoms of shortness of breath, not feeling well, had some nausea and palpitations for the past 1 month. She has a history of hypothyroidism. She has had her levothyroxine adjusted. She has been also feeling fatigued and weak for over a week. Apparently, she was very sleepy. The son brought her into Dr. Preston' office. EKG showed new onset of atrial fibrillation. She had again been complaining of the palpitations and was concerned that it may have been due to her elevated free T4. She underwent evaluation at [facility], which included 2-D echocardiogram, which showed an EF of 50-55%, mild LVH. The aortic valve was calcified with possible mild to moderate stenosis. The mitral valve had severe mitral stenosis, concern for mitral valve stenosis and severe mitral regurgitation, moderate tricuspid regurgitation. RV systolic pressure is 52. CHET showed severe mitral regurgitation, moderate with aortic valve of 1.3, mild to moderate aortic insufficiency. She underwent cardiac catheterization, which showed nonobstructive coronary disease, severe mitral regurgitation, elevated RV pressures. The right atrium was 25. Pulmonary capillary wedge pressure was 50. PA pressure 52/30. Cardiac output of 3.4 with an index of 1.7. The patient was transferred as per the request to be evaluated by Dr. Kourtney Mejia. PAST MEDICAL HISTORY: New onset of atrial fibrillation, some severe mitral regurgitation with some mitral stenosis, aortic stenosis, moderate tricuspid regurgitation, elevated PA pressures, hypothyroidism, diabetes mellitus, obstructive sleep apnea. She uses a CPAP machine. sts data discussed with pt RISK SCORES About the STS Risk Calculator Procedure: MV Replacement Only Risk of Mortality: 7.448% Morbidity or Mortality: 43.751% Long Length of Stay: 25.111% Short Length of Stay: 6.622% Permanent Stroke: 1.833% Prolonged Ventilation: 32.817% DSW Infection: 0.956% Renal Failure: 16.617% Reoperation: 12.489% This does not account for additional MAZE procedure. surgery 10/23 MVR with a 25 Magna ease tissue valve MAZE procedure (complete) CHET 10/24/17 Doing well. c/o incisional pain Objective: Vital Signs - 24 hr 10/23/17 13:00 10/23/17 13:45 10/23/17 14:16 Temperature 98.6 F 98.6 F 97.8 F Pulse Rate 67 60 Respiratory Rate 14 14 Blood Pressure 115/74 121/62 Pulse Oximetry 92 L 10/23/17 14:31 10/23/17 14:37 10/23/17 15:00 Temperature 97.6 F 98.4 F 98.4 F Pulse Rate 59 L 58 L 58 L Respiratory Rate 14 14 14 Blood Pressure 102/58 L 118/63 101/67 Pulse Oximetry 98 99 10/23/17 16:00 10/23/17 17:00 10/23/17 18:20 Temperature 98.6 F 98.6 F Pulse Rate Respiratory Rate 16 Blood Pressure Pulse Oximetry 10/23/17 19:00 10/23/17 20:34 10/23/17 20:44 Temperature 98.9 F Pulse Rate 63 Respiratory Rate 16 Blood Pressure 113/54 L Pulse Oximetry 98 98 98 10/23/17 23:00 10/24/17 03:00 10/24/17 05:50 Temperature 99.1 F 99 F 97.7 F Pulse Rate 63 63 60 Respiratory Rate 12 12 16 Blood Pressure 132/62 118/61 129/81 Pulse Oximetry 98 96 95 10/24/17 07:00 10/24/17 09:51 10/24/17 10:51 Temperature 97.6 F Pulse Rate 64 72 Respiratory Rate 18 Blood Pressure 136/72 Pulse Oximetry 94 L 92 L Labs: Laboratory Results - last 12 hr 10/22/17 10/23/17 10/24/17 13:32 23:03 01:00 WBC RBC Hgb Hct MCV MCH MCHC RDW Plt Count MPV Neut % (Auto) Lymph % (Auto) [place] % (Auto) Eos % (Auto) Baso % (Auto) Neut # (Auto) Lymph # (Auto) [place] # (Auto) Eos # (Auto) Baso # (Auto) WBC Differential Differential Comment Sodium Potassium Chloride Carbon Dioxide Anion Gap BUN Creatinine Estimated GFR POC Glucose 99 165 H Random Glucose Lactic Acid Calcium Magnesium Blood Type O Positive Blood Type Recheck Required Antibody Screen Negative MTS Gel Crossmatch See Detail Bld Prod Order Comment 10/24/17 10/24/17 10/24/17 02:14 02:14 02:14 WBC 13.5 H RBC 3.17 L Hgb 8.5 L D Hct 26.4 L MCV 83.3 MCH 26.8 L MCHC 32.1 RDW 16.0 Plt Count 108 L D MPV 10.3 Neut % (Auto) 84.2 H Lymph % (Auto) 10.9 [place] % (Auto) 4.8 Eos % (Auto) 0.0 Baso % (Auto) 0.1 Neut # (Auto) 11.4 H Lymph # (Auto) 1.5 [place] # (Auto) 0.7 Eos # (Auto) 0.0 Baso # (Auto) 0.0 WBC Differential . Differential Comment Auto diff final Sodium 144 Potassium 5.1 D Chloride 111 H Carbon Dioxide 21.2 Anion Gap 12 BUN 40 H Creatinine 1.80 H Estimated GFR 27 L POC Glucose Random Glucose 111 H Lactic Acid 2.4 H Calcium 9.1 Magnesium 2.5 Blood Type Blood Type Recheck Antibody Screen MTS Gel Crossmatch Bld Prod Order Comment 10/24/17 10/24/17 10/24/17 03:12 06:24 06:27 WBC RBC Hgb Hct MCV MCH MCHC RDW Plt Count MPV Neut % (Auto) Lymph % (Auto) [place] % (Auto) Eos % (Auto) Baso % (Auto) Neut # (Auto) Lymph # (Auto) [place] # (Auto) Eos # (Auto) Baso # (Auto) WBC Differential Differential Comment Sodium Potassium Chloride Carbon Dioxide Anion Gap BUN Creatinine Estimated GFR POC Glucose 108 155 H Random Glucose Lactic Acid Calcium Magnesium Blood Type Blood Type Recheck Antibody Screen MTS Gel Crossmatch See Detail Bld Prod Order Comment 10/24/17 10/24/17 10/24/17 08:14 09:05 09:59 WBC RBC Hgb Hct MCV MCH MCHC RDW Plt Count MPV Neut % (Auto) Lymph % (Auto) [place] % (Auto) Eos % (Auto) Baso % (Auto) Neut # (Auto) Lymph # (Auto) [place] # (Auto) Eos # (Auto) Baso # (Auto) WBC Differential Differential Comment Sodium Potassium Chloride Carbon Dioxide Anion Gap BUN Creatinine Estimated GFR POC Glucose 120 H 112 H 127 H Random Glucose Lactic Acid Calcium Magnesium Blood Type Blood Type Recheck Antibody Screen MTS Gel Crossmatch Bld Prod Order Comment Result Diagrams: 10/24/17 02:14 10/24/17 02:14 Imaging: Carotid Doppler Study 10/22/17 10:20 CONCLUSION: 1. Right Internal Carotid Artery: Findings indicate <50% stenosis. 2. Left Internal Carotid Artery: Findings indicate <50% stenosis. Chest X-Ray 10/24/17 05:00 CONCLUSION: Interval extubation. Continued improvement in aeration. Cardiovascular: RRR Telemetry: NSR Pulmonary: Decreased BS bilat GI/: hypoactive BS Incision: dry and intact CT: ~850ml Appreciate Dr. Alcantar's consult Continue low dose milrinone today Up to chair, ambulate continue chest tubes Transfuse 1 u pRBC Will need diuresis, but has some renal dysfunction this morning with oliguria Advance diet No BB yet.
[2017-10-24 11:33] LABS: Calcium 8.8 mg/dL (8.5-10.1); Carbon Dioxide 21.3 meq/L (21.0-32.0); Hematocrit 28.1 % (35.0-46.0); Hemoglobin 9.2 gm/dL (11.6-15.3); Mean Corpuscular HGB Conc 32.5 % (32.0-36.0); Mean Corpuscular Hemoglobin 27.8 pg (27.0-34.0); Mean Corpuscular Volume 85.3 fL (80.0-100.0); Mean Platelet Volume 10.3 fL (7.0-11.0); Platelet Count 120 th/mm3 (150-450); Potassium 4.9 meq/L (3.5-5.1); Red Cell Distribution Width 16.2 % (11.6-17.2); White Blood Count 16.6 th/mm3 (4.0-11.0)
[2017-10-24] MEDS ORDERED: Dextrose 50% in Water 50 ML Vial IV.PUSH PRN ×2 (11:37→11:39)
[2017-10-24 12:54] LABS: Creatinine,Urine Random 101 mg/dL (27-300)
[2017-10-24] MEDS ORDERED: Insulin NovoLOG Aspart Correctional Sugar Inj SQ SCH (14:00)
[2017-10-24] MEDS: Insulin NovoLOG Aspart Correctional Sugar Inj SQ SCH ×3 (14:10→23:29)
[2017-10-24 19:06] LABS: Hematocrit 25.2 % (35.0-46.0); Hemoglobin 8.3 gm/dL (11.6-15.3); Lymph # (Auto) 1.6 th/mm3 (1.0-4.8); Lymph % (Auto) 10.3 % (9.0-44.0); Mean Corpuscular HGB Conc 33.1 % (32.0-36.0); Mean Corpuscular Hemoglobin 28.2 pg (27.0-34.0); Mean Corpuscular Volume 85.4 fL (80.0-100.0); Mean Platelet Volume 10.4 fL (7.0-11.0); Mono # (Auto) 1.5 th/mm3 (0.0-0.9); Mono % (Auto) 9.6 % (0.0-8.0); Neut # (Auto) 12.3 th/mm3 (1.8-7.7); Neut % (Auto) 80.1 % (16.0-70.0); Platelet Count 116 th/mm3 (150-450); Red Blood Count 2.95 mil/mm3 (4.00-5.30); Red Cell Distribution Width 16.1 % (11.6-17.2); White Blood Count 15.3 th/mm3 (4.0-11.0)
[2017-10-24 19:28] LABS: Calcium 8.9 mg/dL (8.5-10.1); Carbon Dioxide 22.7 meq/L (21.0-32.0); Potassium 4.7 meq/L (3.5-5.1)
[2017-10-24] MEDS ORDERED: Sodium Chlor 0.9% Inj 500 ML IV.SIG SCH (21:30)
[2017-10-24] MEDS ORDERED: Albumin Human 5% Inj 500 ML IV.SIG SCH (21:30)
[2017-10-25] MEDS: Insulin NovoLOG Aspart Correctional Sugar Inj SQ SCH ×6 (02:48→22:32)
[2017-10-25 04:36] LABS: Baso % (Auto) 0.1 % (0.0-2.0); Eos % (Auto) 0.1 % (0.0-4.0); Hematocrit 23.2 % (35.0-46.0); Hemoglobin 7.6 gm/dL (11.6-15.3); Lymph # (Auto) 1.6 th/mm3 (1.0-4.8); Mean Corpuscular HGB Conc 32.6 % (32.0-36.0); Mean Corpuscular Hemoglobin 27.7 pg (27.0-34.0); Mean Corpuscular Volume 85.1 fL (80.0-100.0); Mean Platelet Volume 10.2 fL (7.0-11.0); Mono # (Auto) 1.3 th/mm3 (0.0-0.9); Mono % (Auto) 9.3 % (0.0-8.0); Neut # (Auto) 10.7 th/mm3 (1.8-7.7); Neut % (Auto) 78.5 % (16.0-70.0); Platelet Count 107 th/mm3 (150-450); Red Blood Count 2.73 mil/mm3 (4.00-5.30); White Blood Count 13.6 th/mm3 (4.0-11.0)
[2017-10-25 05:00] LABS: Calcium 8.6 mg/dL (8.5-10.1); Carbon Dioxide 25.1 meq/L (21.0-32.0); Magnesium 2.4 mg/dL (1.5-2.5); Phosphorus 4.4 mg/dL (2.5-4.9); Potassium 4.5 meq/L (3.5-5.1)
[2017-10-25 05:11] LABS: Thyroid Stimulating Hormone 13.6 uIU/mL (0.358-3.740)
[2017-10-25 05:12] LABS: Activated Partial Thrombo Time 21.5 sec (24.3-30.1); INR 1.2 Ratio; Prothrombin Time 12.2 sec (9.8-11.6)
[2017-10-25] MEDS: Amiodarone 200 MG Tablet PO SCH ×3 (06:08→22:32)
[2017-10-25] MEDS: Levothyroxine 50 MCG Tablet PO SCH (06:09)
[2017-10-25] MEDS ORDERED: Albumin Human 5% Inj 500 ML IV.SIG ONE (06:39)
--- NOTE | 2017-10-25 07:45 | XR ---
EXAM DATE: 10/25/2017 7:37 AM EDT AGE/SEX: 77 years / Female INDICATIONS: Evaluate chest tube CLINICAL DATA: This is the patient's subsequent encounter. Patient reports that signs and symptoms h ave been present for 3 days and indicates a pain score of 0/10. MEDICAL/SURGICAL HISTORY: Cardiovascular disease. CABG. COMPARISON: [facility], CHEST 1V SINGLE AP, 10/24/2017. . FINDINGS: AP semiupright portable exam. Right-sided central line with the tip overlying the distal SVC. Right-s ided chest tube overlying the inferior right hemithorax appears retracted from prior exam. Intact median sternotomy wires and cardiac valve. Stable cardiomegaly with diffuse cephalization of pulmonary vasculature. There is loss of visualization of the left hemidiaphragm with slight volume lo ss within the left hemithorax. CONCLUSION: Right-sided chest tube appears retracted as compared to the prior exam. Right-sided central line appe ars stable. Overall worsening lung exam. Electronically signed by: Sondra Chester MD 10/25/2017 7:44 AM EDT
[2017-10-25] MEDS: glipiZIDE 5 MG Tablet PO SCH ×2 (08:23→18:22)
--- NOTE | 2017-10-25 08:33 | P.PNCC ---
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 who presented for elective Mitral valve replacement with MAZE procedure. post-operative course complicated by vasopressor requirement and oliguria. I was asked to see the patient in consultation for hemodynamic management. patient is intubated and no information is available from her. ROS unobtainable. on my evaluation, CVP 9, lactate has been clearing since surgery slowly, from peak of 3.8 down to 2.2 on recent abg. however, uop is still 10cc/hr and ScVO2 from central venous line is 48%. extremities are warm and well-perfused with adequate capillary refill. chest tubes have 70cc blood from last hour with evidence of clots in the tubing. patient wakens and follows commands by squeezing hands and nodding head. 10/24: Remains on 4 L nasal cannula. 1700 cc ss output from chest tube -20 cm H2O. Currently receiving PRBC and leuko-reduced platelets. 50 cc urine output past 2 hours. On milrinone drip. Awake and alert Subjective 10/25: Afebrile. On 6 L nasal cannula. 370 cc serosanguineous from chest tube overnight. Somewhat confused. Oriented to person and place only. Urine output 480 cc past 24 hours. Received 40 mg furosemide 1 yesterday. Received albumin bolus overnight. Objective Vital Signs / I&O: Vital Signs 10/24/17 09:51 10/24/17 10:51 10/24/17 11:00 Temperature 97.9 F Pulse Rate 72 64 Respiratory Rate 18 Blood Pressure 117/66 Pulse Oximetry 92 L 91 L 10/24/17 11:22 10/24/17 15:06 10/24/17 15:07 Temperature 97.7 F Pulse Rate 72 72 Respiratory Rate 18 Blood Pressure 112/59 L Pulse Oximetry 91 L 94 L 10/24/17 20:00 10/24/17 22:14 10/25/17 00:00 Temperature 97.6 F 97.7 F Pulse Rate 70 72 Respiratory Rate 22 22 Blood Pressure 121/51 L 101/54 L Pulse Oximetry 96 94 L 96 10/25/17 04:00 10/25/17 07:59 10/25/17 08:01 Temperature 98.0 F Pulse Rate 80 76 76 Respiratory Rate 24 Blood Pressure 125/57 L Pulse Oximetry 92 L 10/25/17 08:07 10/25/17 08:12 Temperature 97.9 F Pulse Rate 72 Respiratory Rate 20 Blood Pressure 113/59 L Pulse Oximetry 96 96 Intake & Output 10/24/17 10/25/17 10/25/17 18:59 06:59 18:59 Intake Total 835 / 835 340 / 340 Output Total 390 / 390 460 / 460 Balance 445 / 445 -120 / -120 Weight 101 kg Intake: IV 835 / 835 100 / 100 NovoLIN R (IV Infusion) 100 35 / 35 UNIT In NS Inj 99 ML @ 3 UNITS/ HR 3 mls/hr IV.CONT TITRATE PRN Rx#:[id number] Primacor Inj 20 MG In NS Inj 80 100 / 100 ML @ As Directed IV.CONT .Q0M TEODORA Rx#:[id number] Ofirmev Inj 1,000 mg In 100 ml 100 / 100 @ 400 mls/hr IV.SIG Q6H TEODORA Rx# :[id number] LR 1000 mL Inj 500 ML @ Wide 500 / 500 Open IV.SIG BOLUS ONE Rx#: [id number] Ancef Inj 1,000 MG In NS Inj 100 / 100 100 / 100 100 ML @ 200 mls/hr IV.SIG Q8H [facility] Rx#:[id number] Oral 240 / 240 Intake (Blood Product) Amt 0 / 0 Rbc As-3 Leukoreduced Unit 0 / 0 [id number] Output: Urine Amount (Catheter) 190 / 190 290 / 290 Indwelling Temp Sensing 190 / 190 290 / 290 Catheter Chest Tube Drainage 200 / 200 170 / 170 Mediastinal 200 / 200 170 / 170 Other: Date of Last Bowel Movement 10/18/17 10/18/17 # Bowel Movements 0 1 Result Diagrams: 10/25/17 04:10 10/25/17 04:10 Imaging: Carotid Doppler Study 10/22/17 10:20 CONCLUSION: 1. Right Internal Carotid Artery: Findings indicate <50% stenosis. 2. Left Internal Carotid Artery: Findings indicate <50% stenosis. Chest X-Ray 10/22/17 10:20 CONCLUSION: Borderline cardiomegaly. Prominence of the interstitium which may represent some pulmonary venous hypertension. Chest X-Ray 10/23/17 12:30 CONCLUSION: Cardiomegaly with mild interstitial edema. Mitral valve prosthesis is evident. Chest X-Ray 10/24/17 05:00 CONCLUSION: Interval extubation. Continued improvement in aeration. Chest X-Ray 10/25/17 07:00 CONCLUSION: Right-sided chest tube appears retracted as compared to the prior exam. Right- sided central line appears stable. Overall worsening lung exam. Objective Remarks: GENERAL: Elderly female, lying in bed on 6 L nasal cannula somewhat confused HEENT: Normocephalic. Atraumatic. Pupils equal, round, reactive, conjugate. Mucous membranes are moist NECK: Trachea is midline. . Right IJ sheath in place, dressing clean dry and intact. CHEST: Coarse rhonchorous breath sounds appreciated bilaterally anteriorly posteriorly. No wheezing. 2 chest tubes exit subxiphoid with a minimal amount of sanguinous output. CARDIOVASCULAR: Regular rhythm rate. S1, S2. No S4. Without murmur ABDOMEN: Soft, nontender, nondistended. No guarding. MUSCULOSKELETAL: Pulses 2+. Trace lower extremity edema. Extremities are warm and well-perfused NEUROLOGICAL: Cranial nerves II through XII appear to be grossly intact. Moves all 4 extremities spontaneously. Strength appears equal and symmetric. Assessment and Plan - Assessment and Plan Plan: Neuro/Psych: Depressive disorder NOS Continue Escitalopram 10 mg daily/home medication for depression Acetaminophen 650 mg every 6 hours as needed fever Hydrocodone/acetaminophen 5/325 1 tablet every 4 hours as needed pain. Fentanyl 25 mg IV every 8 hours as needed breakthrough pain. Zolpidem 5 mg at night as needed insomnia Lorazepam 0.5 mg every 8 hours as needed anxiety CV: Status post mitral valve replacement with maze procedure day #[address] Mejia Cardiogenic shock by Foster cardiac index calculations resolving Lactic acidosis -resolved Essential hypertension Paroxysmal atrial fibrillation History of diastolic heart failure Postoperative management per CT surgery for chest tube Amiodarone 400 mg 3 times daily initiated by CT surgery Aspirin 81 mg daily to be continued Hydralazine 100 mg twice daily to be continued On losartan 100 mg daily at home? Currently on hold Serial lactates have cleared Discontinue milrinone drip Resp: Nasal cannula to maintain saturations greater than equal to 92%. Currently on 6 L Incentive spirometry while awake As needed albuterol/ipratropium aerosols every 2 hours as needed dyspnea Chest tube -370 cc past 24 hours -20 cm H2O Chest x-ray in a.m. 10/26. GI: Hypoalbuminemia Cardiac/diabetic diet per CT surgery Pantoprazole for GI prophylaxis Docusate sodium 100 mg twice daily for bowel regimen : Incontinence Continue oxybutynin 5 mg daily/home medication Maintain Bronson catheter Endo: Diabetes mellitus hemoglobin A1c 6.2 Hypothyroidism Insulin drip/sliding scale per CT surgery to maintain euglycemia Resume glipizide 5 mg twice daily/home medication Currently on levothyroxine 50 mcg by mouth daily. Check TSH elevated at 13.6. Will increase levothyroxine dose 75 mcg daily. Renal: Acute kidney injury Oliguria Monitor urine output Accurate I's and O's Renal ultrasound pending. Urine eosinophils negative. Urine sodium was less than 5. Prerenal indices. Patient appears to been adequately volume resuscitate. Last CVP was 22. Heme: Leukocytosis Normocytic anemia Thrombocytopenia Elevated PTT Low fibrinogen Transfuse one PRBC with 1 pack platelets since midnight. Recheck at 1500 Monitor CBC and coags daily. Follow trends ID: Postoperative antibiotics with cefazolin 1 g IV every 8 hours [address] surgery FEN: Replace electrolytes as clinically indicated MSK: Elevated BMI Weight loss encouraged. PT evaluate and treat Access -Right IJ Cordis with dual-lumen catheter day #3 placed in OR 10/23 Prophylaxis -GI -pantoprazole -DVT -TEDS - pharmacological proph when ok with CTS Level 3 follow-up
[2017-10-25] MEDS: Docusate Sodium 100 MG Capsule PO SCH (08:44)
[2017-10-25] MEDS: Escitalopram 10 MG Tablet PO SCH (08:44)
[2017-10-25] MEDS ORDERED: Levothyroxine 75 MCG Tablet PO SCH (09:00)
--- NOTE | 2017-10-25 09:29 | P.PNCA ---
- Note CVT: Post Op Day #: 2 Subjective/Hospital Course: A 77-year-old patient of Dr. Alondra Preston, Dr. Abdi from [place]. The patient apparently has had symptoms of shortness of breath, not feeling well, had some nausea and palpitations for the past 1 month. She has a history of hypothyroidism. She has had her levothyroxine adjusted. She has been also feeling fatigued and weak for over a week. Apparently, she was very sleepy. The son brought her into Dr. Preston' office. EKG showed new onset of atrial fibrillation. She had again been complaining of the palpitations and was concerned that it may have been due to her elevated free T4. She underwent evaluation at [facility], which included 2-D echocardiogram, which showed an EF of 50-55%, mild LVH. The aortic valve was calcified with possible mild to moderate stenosis. The mitral valve had severe mitral stenosis, concern for mitral valve stenosis and severe mitral regurgitation, moderate tricuspid regurgitation. RV systolic pressure is 52. CHET showed severe mitral regurgitation, moderate with aortic valve of 1.3, mild to moderate aortic insufficiency. She underwent cardiac catheterization, which showed nonobstructive coronary disease, severe mitral regurgitation, elevated RV pressures. The right atrium was 25. Pulmonary capillary wedge pressure was 50. PA pressure 52/30. Cardiac output of 3.4 with an index of 1.7. The patient was transferred as per the request to be evaluated by Dr. Kourtney Mejia. PAST MEDICAL HISTORY: New onset of atrial fibrillation, some severe mitral regurgitation with some mitral stenosis, aortic stenosis, moderate tricuspid regurgitation, elevated PA pressures, hypothyroidism, diabetes mellitus, obstructive sleep apnea. She uses a CPAP machine. sts data discussed with pt RISK SCORES About the STS Risk Calculator Procedure: MV Replacement Only Risk of Mortality: 7.448% Morbidity or Mortality: 43.751% Long Length of Stay: 25.111% Short Length of Stay: 6.622% Permanent Stroke: 1.833% Prolonged Ventilation: 32.817% DSW Infection: 0.956% Renal Failure: 16.617% Reoperation: 12.489% This does not account for additional MAZE procedure. surgery 10/23 MVR with a 25 Magna ease tissue valve MAZE procedure (complete) CHET 10/24/17 Doing well. c/o incisional pain 10/25/17 Overall appears to be better this morning. She has developed some renal insufficiency but urine output is improving. She is anemic this morning as well. Objective: Vital Signs - 24 hr 10/24/17 09:51 10/24/17 10:51 10/24/17 11:00 Temperature 97.9 F Pulse Rate 72 64 Respiratory Rate 18 Blood Pressure 117/66 Pulse Oximetry 92 L 91 L 10/24/17 11:22 10/24/17 15:06 10/24/17 15:07 Temperature 97.7 F Pulse Rate 72 72 Respiratory Rate 18 Blood Pressure 112/59 L Pulse Oximetry 91 L 94 L 10/24/17 20:00 10/24/17 22:14 10/25/17 00:00 Temperature 97.6 F 97.7 F Pulse Rate 70 72 Respiratory Rate 22 22 Blood Pressure 121/51 L 101/54 L Pulse Oximetry 96 94 L 96 10/25/17 04:00 10/25/17 07:59 10/25/17 08:01 Temperature 98.0 F Pulse Rate 80 76 76 Respiratory Rate 24 Blood Pressure 125/57 L Pulse Oximetry 92 L 10/25/17 08:07 10/25/17 08:12 10/25/17 08:30 Temperature 97.9 F Pulse Rate 72 Respiratory Rate 20 Blood Pressure 113/59 L Pulse Oximetry 96 96 96 Labs: Laboratory Results - last 12 hr 10/24/17 10/24/17 10/25/17 06:24 22:31 02:44 WBC RBC Hgb Hct MCV MCH MCHC RDW Plt Count MPV Neut % (Auto) Lymph % (Auto) [place] % (Auto) Eos % (Auto) Baso % (Auto) Neut # (Auto) Lymph # (Auto) [place] # (Auto) Eos # (Auto) Baso # (Auto) WBC Differential Differential Comment PT INR APTT Fibrinogen Sodium Potassium Chloride Carbon Dioxide Anion Gap BUN Creatinine Estimated GFR POC Glucose 211 H 186 H Random Glucose Lactic Acid Calcium Phosphorus Magnesium TSH MTS Gel Crossmatch See Detail 10/25/17 10/25/17 10/25/17 04:10 04:10 04:10 WBC 13.6 H RBC 2.73 L Hgb 7.6 L Hct 23.2 L MCV 85.1 MCH 27.7 MCHC 32.6 RDW 16.0 Plt Count 107 L MPV 10.2 Neut % (Auto) 78.5 H Lymph % (Auto) 12.0 [place] % (Auto) 9.3 H Eos % (Auto) 0.1 Baso % (Auto) 0.1 Neut # (Auto) 10.7 H Lymph # (Auto) 1.6 [place] # (Auto) 1.3 H Eos # (Auto) 0.0 Baso # (Auto) 0.0 WBC Differential . Differential Comment Auto diff final PT 12.2 H INR 1.2 APTT 21.5 L D Fibrinogen 187 L Sodium Potassium Chloride Carbon Dioxide Anion Gap BUN Creatinine Estimated GFR POC Glucose Random Glucose Lactic Acid 1.7 Calcium Phosphorus Magnesium TSH MTS Gel Crossmatch 10/25/17 04:10 WBC RBC Hgb Hct MCV MCH MCHC RDW Plt Count MPV Neut % (Auto) Lymph % (Auto) [place] % (Auto) Eos % (Auto) Baso % (Auto) Neut # (Auto) Lymph # (Auto) [place] # (Auto) Eos # (Auto) Baso # (Auto) WBC Differential Differential Comment PT INR APTT Fibrinogen Sodium 141 Potassium 4.5 Chloride 106 Carbon Dioxide 25.1 Anion Gap 10 BUN 60 H Creatinine 2.70 H Estimated GFR 17 L POC Glucose Random Glucose 159 H Lactic Acid Calcium 8.6 Phosphorus 4.4 Magnesium 2.4 TSH 13.600 H MTS Gel Crossmatch Result Diagrams: 10/25/17 04:10 10/25/17 04:10 Imaging: Carotid Doppler Study 10/22/17 10:20 CONCLUSION: 1. Right Internal Carotid Artery: Findings indicate <50% stenosis. 2. Left Internal Carotid Artery: Findings indicate <50% stenosis. Chest X-Ray 10/25/17 07:00 CONCLUSION: Right-sided chest tube appears retracted as compared to the prior exam. Right- sided central line appears stable. Overall worsening lung exam. Cardiovascular: RRR Telemetry: NSR Pulmonary: few crackles bilat GI/: NABS Incision: dry and intact CT: ~160ml/12hrs Plan 2 units pRBC today Diurese Up to chair, PT/OT Will consult Nephrology if her renal function doesn't improve by tomorrow Increase thyroid dose based on high TSH. Continue chest tubes another day
[2017-10-25] MEDS ORDERED: Sodium Chlor 0.9% Inj 250 ML IV.SIG SCH ×3 (10:00)
--- NOTE | 2017-10-25 11:14 | US ---
EXAM DATE: 10/25/2017 11:10 AM EDT AGE/SEX: 77 years / Female INDICATIONS: Abnormal labs. CLINICAL DATA: This is the patient's initial encounter. Patient reports that signs and symptoms have been present for 1 day and indicates a pain score of 10/10. MEDICAL/SURGICAL HISTORY: Diabetes. . Mitral valve replacement. COMPARISON: No prior exams available for comparison. MEASUREMENTS: Right Kidney:__11.5 x 3.7 x 4.5 cm Left Kidney:__10.8 x 4.7 x 5.1 cm FINDINGS: Right Kidney: Increased echotexture. No mass or hydronephrosis. Left Kidney: Increased echotexture. No mass or hydronephrosis. Bladder: Bronson catheter is present. Bladder decompressed. Other: None. CONCLUSION: 1. The renal parenchyma appears abnormally increased echotexture bilaterally consistent with chronic medical renal disease. No evidence of hydronephrosis or concerning mass. Electronically signed by: Sondra Chester MD 10/25/2017 11:12 AM EDT
[2017-10-25] MEDS: Levothyroxine 100 MCG Tablet PO SCH (14:07)
[2017-10-25 15:37] LABS: Hematocrit 25.4 % (35.0-46.0); Hemoglobin 8.5 gm/dL (11.6-15.3); Mean Corpuscular HGB Conc 33.3 % (32.0-36.0); Mean Corpuscular Hemoglobin 27.8 pg (27.0-34.0); Mean Corpuscular Volume 83.7 fL (80.0-100.0); Mean Platelet Volume 9.6 fL (7.0-11.0); Platelet Count 82 th/mm3 (150-450); Red Blood Count 3.04 mil/mm3 (4.00-5.30); White Blood Count 11.9 th/mm3 (4.0-11.0)
[2017-10-25 18:21] LABS: Calcium 8.2 mg/dL (8.5-10.1); Carbon Dioxide 22.8 meq/L (21.0-32.0); Potassium 4.3 meq/L (3.5-5.1)
[2017-10-26] MEDS: Insulin NovoLOG Aspart Correctional Sugar Inj SQ SCH ×6 (02:35→21:25)
[2017-10-26 04:26] LABS: Eos % (Auto) 0.4 % (0.0-4.0); Hematocrit 29.1 % (35.0-46.0); Hemoglobin 9.8 gm/dL (11.6-15.3); Lymph # (Auto) 0.7 th/mm3 (1.0-4.8); Lymph % (Auto) 7.5 % (9.0-44.0); Mean Corpuscular HGB Conc 33.8 % (32.0-36.0); Mean Corpuscular Hemoglobin 28.4 pg (27.0-34.0); Mean Platelet Volume 9.2 fL (7.0-11.0); Mono # (Auto) 0.7 th/mm3 (0.0-0.9); Mono % (Auto) 7.6 % (0.0-8.0); Neut % (Auto) 84.5 % (16.0-70.0); Platelet Count 65 th/mm3 (150-450); Red Blood Count 3.47 mil/mm3 (4.00-5.30); Red Cell Distribution Width 16.9 % (11.6-17.2); White Blood Count 9.5 th/mm3 (4.0-11.0)
[2017-10-26 04:48] LABS: Albumin 3.5 g/dL (3.4-5.0); Anion Gap 9 meq/L (5-15); Aspartate Aminotransferase 142 U/L (15-37); Blood Urea Nitrogen 62 mg/dL (7-18); Calcium 8.6 mg/dL (8.5-10.1); Carbon Dioxide 26.5 meq/L (21.0-32.0); Chloride 104 meq/L (98-107); Glomerular Filtration Rate 21 mL/min (>89); Glucose,Random 126 mg/dL (74-106); Magnesium 2.2 mg/dL (1.5-2.5); Potassium 3.7 meq/L (3.5-5.1); Sodium 139 meq/L (136-145)
[2017-10-26 04:50] LABS: Alanine Aminotransferase 47 U/L (10-53); Phosphorus 4.1 mg/dL (2.5-4.9)
[2017-10-26 04:58] LABS: Alkaline Phosphatase 55 U/L (45-117); Free T4 (Free Thyroxine) 0.72 ng/dL (0.76-1.46); Total Protein 5.6 g/dL (6.4-8.2); Triiodothyronine (T3) Free 0.76 pg/mL (2.18-3.98)
--- NOTE | 2017-10-26 05:55 | XR ---
EXAM DATE: 10/26/2017 5:43 AM EDT AGE/SEX: 77 years / Female INDICATIONS: Shortness of breath. CLINICAL DATA: This is the patient's subsequent encounter. Patient reports that signs and symptoms h ave been present for 4 - 6 days and indicates a pain score of 6/10. MEDICAL/SURGICAL HISTORY: Cardiovascular disease. CABG. COMPARISON: C, CHEST 1V SINGLE AP, 10/25/2017. . FINDINGS: Right central line in superior vena cava. Postop median sternotomy and mitral valve replacement. Bila teral mostly basilar airspace disease and probable trace pleural fluid similar to October 25. Cardiomega ly. CONCLUSION: Stable exam with right central line in superior vena cava. Mild basilar edema pattern with trace pleu ral fluid. Stable cardiomegaly. Electronically signed by: Sarthak Frey MD 10/26/2017 5:53 AM EDT
[2017-10-26] MEDS ORDERED: Levothyroxine 75 MCG Tablet PO SCH (06:00)
[2017-10-26] MEDS: Amiodarone 200 MG Tablet PO SCH (06:32)
[2017-10-26] MEDS: Levothyroxine 100 MCG Tablet PO SCH (06:32)
[2017-10-26] MEDS: Docusate Sodium 100 MG Capsule PO SCH ×2 (08:01→21:28)
[2017-10-26] MEDS: glipiZIDE 5 MG Tablet PO SCH (08:04)
[2017-10-26] MEDS: Escitalopram 10 MG Tablet PO SCH (08:05)
[2017-10-26] MEDS ORDERED: Dextrose 50% in Water 50 ML Vial IV.PUSH PRN (11:04)
[2017-10-26] MEDS ORDERED: Sod Phosphate/Sod Biphosphate (Adult) Enema 133 ML Bottle RECTAL PRN (11:04)
[2017-10-26] MEDS ORDERED: Bisacodyl 10 MG Supp RECTAL PRN (11:04)
--- NOTE | 2017-10-26 12:16 | P.PNCA ---
- Note Subjective/Hospital Course: A 77-year-old patient of Dr. Alondra Preston, Dr. Abdi from [place]. The patient apparently has had symptoms of shortness of breath, not feeling well, had some nausea and palpitations for the past 1 month. She has a history of hypothyroidism. She has had her levothyroxine adjusted. She has been also feeling fatigued and weak for over a week. Apparently, she was very sleepy. The son brought her into Dr. Preston' office. EKG showed new onset of atrial fibrillation. She had again been complaining of the palpitations and was concerned that it may have been due to her elevated free T4. She underwent evaluation at [facility], which included 2-D echocardiogram, which showed an EF of 50-55%, mild LVH. The aortic valve was calcified with possible mild to moderate stenosis. The mitral valve had severe mitral stenosis, concern for mitral valve stenosis and severe mitral regurgitation, moderate tricuspid regurgitation. RV systolic pressure is 52. CHET showed severe mitral regurgitation, moderate with aortic valve of 1.3, mild to moderate aortic insufficiency. She underwent cardiac catheterization, which showed nonobstructive coronary disease, severe mitral regurgitation, elevated RV pressures. The right atrium was 25. Pulmonary capillary wedge pressure was 50. PA pressure 52/30. Cardiac output of 3.4 with an index of 1.7. The patient was transferred as per the request to be evaluated by Dr. Kourtney Mejia. PAST MEDICAL HISTORY: New onset of atrial fibrillation, some severe mitral regurgitation with some mitral stenosis, aortic stenosis, moderate tricuspid regurgitation, elevated PA pressures, hypothyroidism, diabetes mellitus, obstructive sleep apnea. She uses a CPAP machine. sts data discussed with pt RISK SCORES About the STS Risk Calculator Procedure: MV Replacement Only Risk of Mortality: 7.448% Morbidity or Mortality: 43.751% Long Length of Stay: 25.111% Short Length of Stay: 6.622% Permanent Stroke: 1.833% Prolonged Ventilation: 32.817% DSW Infection: 0.956% Renal Failure: 16.617% Reoperation: 12.489% This does not account for additional MAZE procedure. surgery 10/23 MVR with a 25 Magna ease tissue valve MAZE procedure (complete) CHET 10/24/17 Doing well. c/o incisional pain 10/25/17 Overall appears to be better this morning. She has developed some renal insufficiency but urine output is improving. She is anemic this morning as well. 10/26 off all pressors and insulin gtt BP stable , unable to start BB 2/2 bradycardia PLT 63K / ASA on hold / will need to start coumadin prior to discharge / INR 2- 2.5 x 6 weeks / tissue valve discussed with family, pt will need rehab at discharge PT/OT/ OOB leave chest tubes in today / drained 150cc/ 12hrs transfer to stepdown Objective: Vital Signs - 24 hr 10/25/17 12:02 10/25/17 12:05 10/25/17 12:06 Temperature 97.9 F Pulse Rate 72 72 Respiratory Rate 20 Blood Pressure 130/65 Pulse Oximetry 97 97 10/25/17 12:51 10/25/17 13:11 10/25/17 14:47 Temperature 97.9 F 97.9 F 97.9 F Pulse Rate 72 70 69 Respiratory Rate 20 20 20 Blood Pressure 135/65 107/66 Pulse Oximetry 98 98 98 10/25/17 15:02 10/25/17 16:50 10/25/17 16:51 Temperature 97.4 F L Pulse Rate 71 72 Respiratory Rate 20 Blood Pressure Pulse Oximetry 98 98 10/25/17 16:53 10/25/17 19:00 10/25/17 19:58 Temperature 97.4 F L 97.9 F Pulse Rate 72 70 70 Respiratory Rate 20 18 Blood Pressure 123/71 124/69 Pulse Oximetry 98 97 10/25/17 21:26 10/25/17 23:01 10/26/17 00:00 Temperature 97.9 F Pulse Rate 70 70 Respiratory Rate 18 Blood Pressure 140/70 Pulse Oximetry 96 96 10/26/17 03:00 10/26/17 03:01 10/26/17 04:00 Temperature 99.4 F Pulse Rate 71 65 Respiratory Rate 20 18 Blood Pressure 130/77 Pulse Oximetry 95 96 10/26/17 07:00 10/26/17 09:33 Temperature Pulse Rate Respiratory Rate 18 Blood Pressure Pulse Oximetry 96 GENERAL: A&O x 3 , general weakness SKIN: Warm and dry. prevena dressing to chest HEAD: Normocephalic. EYES: No scleral icterus. No injection or drainage. NECK: Supple, trachea midline. No JVD or lymphadenopathy. CARDIOVASCULAR: Regular rate and rhythm without 1-2/6 Systolic murmurs mild general edema RESPIRATORY: Breath sounds equal bilaterally. No accessory muscle use. diminished in bases , chest tube to wall suction/ no air leak GASTROINTESTINAL: Abdomen soft, non-tender, nondistended. MUSCULOSKELETAL: No cyanosis, or edema. BACK: Nontender without obvious deformity. No CVA tenderness. Labs: Laboratory Results - last 12 hr 10/26/17 10/26/17 10/26/17 02:29 04:15 04:15 WBC RBC Hgb Hct MCV MCH MCHC RDW Plt Count MPV Prelim Diff (Auto) Neut % (Auto) Lymph % (Auto) [place] % (Auto) Eos % (Auto) Baso % (Auto) Neut # (Auto) Lymph # (Auto) [place] # (Auto) Eos # (Auto) Baso # (Auto) WBC Differential Diff Scan Differential Comment Sodium 139 Potassium 3.7 Chloride 104 Carbon Dioxide 26.5 Anion Gap 9 BUN 62 H Creatinine 2.27 H Estimated GFR 21 L POC Glucose 150 H Random Glucose 126 H Calcium 8.6 Phosphorus 4.1 Magnesium 2.2 Total Bilirubin 0.8 AST 142 H ALT 47 Alkaline Phosphatase 55 Ammonia 29 Total Protein 5.6 L D Albumin 3.5 Free T4 0.72 L Free T3 0.76 L 10/26/17 10/26/17 10/26/17 04:15 06:30 09:33 WBC 9.5 RBC 3.47 L Hgb 9.8 L Hct 29.1 L MCV 84.0 MCH 28.4 MCHC 33.8 RDW 16.9 Plt Count 65 L MPV 9.2 Prelim Diff (Auto) Slide review pending Neut % (Auto) 84.5 H Lymph % (Auto) 7.5 L [place] % (Auto) 7.6 Eos % (Auto) 0.4 Baso % (Auto) 0.0 Neut # (Auto) 8.0 H Lymph # (Auto) 0.7 L [place] # (Auto) 0.7 Eos # (Auto) 0.0 Baso # (Auto) 0.0 WBC Differential . Diff Scan Auto diff confirmed Differential Comment . Sodium Potassium Chloride Carbon Dioxide Anion Gap BUN Creatinine Estimated GFR POC Glucose 128 H 178 H Random Glucose Calcium Phosphorus Magnesium Total Bilirubin AST ALT Alkaline Phosphatase Ammonia Total Protein Albumin Free T4 Free T3 Result Diagrams: 10/26/17 04:15 10/26/17 04:15 Telemetry: sinus andie 1st degree AV block - Plan (2) Atrial fibrillation Plan: in sinus andie , if pt goes back in to Afib / will need intermediate project manager anticoagulation (3) Mitral regurgitation Plan: mitral valve replacement 25 Magna ease tissue valve will need coumadin x 6 weeks (4) Diastolic heart failure Plan: weaned off milrinone resume diuresis / when renal function improves (6) S/P MVR (mitral valve replacement) Plan: OOB ambulate PT/OT pulm toileting start [facility] when pLT improved ASA on hold for now (7) Acute blood loss as cause of postoperative anemia Plan: s/p 4 units PRBC and one pack PLT
--- NOTE | 2017-10-26 12:25 | ECG ---
Date Performed: 10/24/2017 Time Performed: 05:06:42 PTAGE: 77 years EKG: Possible ectopic atrial rhythm. Poor R wave progression - probable normal variant Low QRS v oltages in precordial leads Borderline ECG NO PREVIOUS TRACING DOCTOR: Ivette Sue Interpretating Date/Time 10/26/2017 12:12:05
--- NOTE | 2017-10-26 12:38 | P.DIET ---
Nutritional Evaluation Screening comments: MDC for diet education s/p MVR on 10/23. Patient navigator to provide education. Consult RD if complexities with diet education arise.
--- NOTE | 2017-10-26 13:15 | P.PNCC ---
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 who presented for elective Mitral valve replacement with MAZE procedure. post-operative course complicated by vasopressor requirement and oliguria. I was asked to see the patient in consultation for hemodynamic management. patient is intubated and no information is available from her. ROS unobtainable. on my evaluation, CVP 9, lactate has been clearing since surgery slowly, from peak of 3.8 down to 2.2 on recent abg. however, uop is still 10cc/hr and ScVO2 from central venous line is 48%. extremities are warm and well-perfused with adequate capillary refill. chest tubes have 70cc blood from last hour with evidence of clots in the tubing. patient wakens and follows commands by squeezing hands and nodding head. 10/24: Remains on 4 L nasal cannula. 1700 cc ss output from chest tube -20 cm H2O. Currently receiving PRBC and leuko-reduced platelets. 50 cc urine output past 2 hours. On milrinone drip. Awake and alert Subjective 10/25: Afebrile. On 6 L nasal cannula. 370 cc serosanguineous from chest tube overnight. Somewhat confused. Oriented to person and place only. Urine output 480 cc past 24 hours. Received 40 mg furosemide 1 yesterday. Received albumin bolus overnight. 10/26 Patient is lying in bed in NAD. Afebrile. Objective Vital Signs / I&O: Vital Signs 10/25/17 13:11 10/25/17 14:47 10/25/17 15:02 Temperature 97.9 F 97.9 F 97.4 F L Pulse Rate 70 69 71 Respiratory Rate 20 20 20 Blood Pressure 107/66 Pulse Oximetry 98 98 98 10/25/17 16:50 10/25/17 16:51 10/25/17 16:53 Temperature 97.4 F L Pulse Rate 72 72 Respiratory Rate 20 Blood Pressure 123/71 Pulse Oximetry 98 98 10/25/17 19:00 10/25/17 19:58 10/25/17 21:26 Temperature 97.9 F Pulse Rate 70 70 Respiratory Rate 18 Blood Pressure 124/69 Pulse Oximetry 97 96 10/25/17 23:01 10/26/17 00:00 10/26/17 03:00 Temperature 97.9 F 99.4 F Pulse Rate 70 70 71 Respiratory Rate 18 20 Blood Pressure 140/70 130/77 Pulse Oximetry 96 95 10/26/17 03:01 10/26/17 04:00 10/26/17 07:00 Temperature Pulse Rate 65 Respiratory Rate 18 18 Blood Pressure Pulse Oximetry 96 10/26/17 09:33 Temperature Pulse Rate Respiratory Rate Blood Pressure Pulse Oximetry 96 Intake & Output 10/25/17 10/26/17 10/26/17 18:59 06:59 18:59 Intake Total 1600 / 1600 2099 / 2099 Output Total 830 / 830 1145 / 1145 Balance 770 / 770 955 / 955 Weight 100 kg Intake: IV 2099 Precedex Inj 200 MCG In NS Inj 0 / 0 48 ML @ 0.2 MCG/KG/HR 4.65 mls/ hr IV.CONT TITRATE PRN Rx#: [id number] Alburx 5% Inj 500 ML @ 250 mls/ 500 / 500 hr IV.SIG ONCE ONE Rx#:[id number] NS Inj 250 ML @ 15 mls/hr IV. 250 / 250 SIG ONCE TEODORA Rx#:[id number] Oral 800 / 800 Intake (Blood Product) Amt 800 / 800 Rbc As-3 Leukoreduced Unit 400 / 400 [id number] Rbc As-3 Leukoreduced Unit 400 / 400 [id number] Output: Urine Amount (Catheter) 655 / 655 995 / 995 Indwelling Temp Sensing 655 / 655 995 / 995 Catheter Chest Tube Drainage 175 / 175 150 / 150 Mediastinal 175 / 175 150 / 150 Other: Date of Last Bowel Movement 10/18/17 # Bowel Movements 0 0 Result Diagrams: 10/26/17 04:15 10/26/17 04:15 Other Results: Abnormal Lab Results 10/23/17 10/25/17 10/25/17 11:39 09:30 14:01 WBC RBC Hgb Hct MCV MCH MCHC RDW Plt Count MPV Prelim Diff (Auto) Neut % (Auto) Lymph % (Auto) [place] % (Auto) Eos % (Auto) Baso % (Auto) Neut # (Auto) Lymph # (Auto) [place] # (Auto) Eos # (Auto) Baso # (Auto) WBC Differential Diff Scan Differential Comment Sodium Potassium Chloride Carbon Dioxide Anion Gap BUN Creatinine Estimated GFR POC Glucose 186 H Random Glucose Lactic Acid Calcium Phosphorus Magnesium Total Bilirubin AST ALT Alkaline Phosphatase Ammonia Total Protein Albumin Free T4 Free T3 Blood Type O Positive Antibody Screen Negative MTS Gel Crossmatch See Detail Bld Prod Order Comment 10/25/17 10/25/17 10/25/17 15:15 15:15 15:15 WBC 11.9 H RBC 3.04 L Hgb 8.5 L Hct 25.4 L MCV 83.7 MCH 27.8 MCHC 33.3 RDW 17.0 Plt Count 82 L MPV 9.6 Prelim Diff (Auto) Neut % (Auto) Lymph % (Auto) [place] % (Auto) Eos % (Auto) Baso % (Auto) Neut # (Auto) Lymph # (Auto) [place] # (Auto) Eos # (Auto) Baso # (Auto) WBC Differential Diff Scan Differential Comment Sodium 139 Potassium 4.3 Chloride 105 Carbon Dioxide 22.8 Anion Gap 11 BUN 62 H Creatinine 2.50 H Estimated GFR 19 L POC Glucose Random Glucose 159 H Lactic Acid 1.1 Calcium 8.2 L Phosphorus Magnesium Total Bilirubin AST ALT Alkaline Phosphatase Ammonia Total Protein Albumin Free T4 Free T3 Blood Type Antibody Screen MTS Gel Crossmatch Bld Prod Order Comment 10/25/17 10/25/17 10/26/17 17:06 22:21 02:29 WBC RBC Hgb Hct MCV MCH MCHC RDW Plt Count MPV Prelim Diff (Auto) Neut % (Auto) Lymph % (Auto) [place] % (Auto) Eos % (Auto) Baso % (Auto) Neut # (Auto) Lymph # (Auto) [place] # (Auto) Eos # (Auto) Baso # (Auto) WBC Differential Diff Scan Differential Comment Sodium Potassium Chloride Carbon Dioxide Anion Gap BUN Creatinine Estimated GFR POC Glucose 184 H 162 H 150 H Random Glucose Lactic Acid Calcium Phosphorus Magnesium Total Bilirubin AST ALT Alkaline Phosphatase Ammonia Total Protein Albumin Free T4 Free T3 Blood Type Antibody Screen MTS Gel Crossmatch Bld Prod Order Comment 10/26/17 10/26/17 10/26/17 04:15 04:15 04:15 WBC 9.5 RBC 3.47 L Hgb 9.8 L Hct 29.1 L MCV 84.0 MCH 28.4 MCHC 33.8 RDW 16.9 Plt Count 65 L MPV 9.2 Prelim Diff (Auto) Slide review pending Neut % (Auto) 84.5 H Lymph % (Auto) 7.5 L [place] % (Auto) 7.6 Eos % (Auto) 0.4 Baso % (Auto) 0.0 Neut # (Auto) 8.0 H Lymph # (Auto) 0.7 L [place] # (Auto) 0.7 Eos # (Auto) 0.0 Baso # (Auto) 0.0 WBC Differential . Diff Scan Auto diff confirmed Differential Comment . Sodium 139 Potassium 3.7 Chloride 104 Carbon Dioxide 26.5 Anion Gap 9 BUN 62 H Creatinine 2.27 H Estimated GFR 21 L POC Glucose Random Glucose 126 H Lactic Acid Calcium 8.6 Phosphorus 4.1 Magnesium 2.2 Total Bilirubin 0.8 AST 142 H ALT 47 Alkaline Phosphatase 55 Ammonia 29 Total Protein 5.6 L D Albumin 3.5 Free T4 0.72 L Free T3 0.76 L Blood Type Antibody Screen MTS Gel Crossmatch Bld Prod Order Comment 10/26/17 10/26/17 06:30 09:33 WBC RBC Hgb Hct MCV MCH MCHC RDW Plt Count MPV Prelim Diff (Auto) Neut % (Auto) Lymph % (Auto) [place] % (Auto) Eos % (Auto) Baso % (Auto) Neut # (Auto) Lymph # (Auto) [place] # (Auto) Eos # (Auto) Baso # (Auto) WBC Differential Diff Scan Differential Comment Sodium Potassium Chloride Carbon Dioxide Anion Gap BUN Creatinine Estimated GFR POC Glucose 128 H 178 H Random Glucose Lactic Acid Calcium Phosphorus Magnesium Total Bilirubin AST ALT Alkaline Phosphatase Ammonia Total Protein Albumin Free T4 Free T3 Blood Type Antibody Screen MTS Gel Crossmatch Bld Prod Order Comment Imaging: Carotid Doppler Study 10/22/17 10:20 CONCLUSION: 1. Right Internal Carotid Artery: Findings indicate <50% stenosis. 2. Left Internal Carotid Artery: Findings indicate <50% stenosis. Abdomen/Bladder Ultrasound 10/25/17 00:00 CONCLUSION: 1. The renal parenchyma appears abnormally increased echotexture bilaterally consistent with chronic medical renal disease. No evidence of hydronephrosis or concerning mass. Chest X-Ray 10/26/17 06:00 CONCLUSION: Stable exam with right central line in superior vena cava. Mild basilar edema pattern with trace pleural fluid. Stable cardiomegaly. Objective Remarks: GENERAL: Elderly female, lying in bed on 2 L nasal cannula HEENT: Normocephalic. Atraumatic. Pupils equal, round, reactive, conjugate. Mucous membranes are moist NECK: Trachea is midline. . Right IJ sheath in place, dressing clean dry and intact. CHEST: Coarse rhonchorous breath sounds appreciated bilaterally anteriorly posteriorly. No wheezing. 2 chest tubes exit subxiphoid with a minimal amount of sanguinous output. CARDIOVASCULAR: Regular rhythm rate. S1, S2. No S4. Without murmur ABDOMEN: Soft, nontender, nondistended. No guarding. MUSCULOSKELETAL: Pulses 2+. Trace lower extremity edema. Extremities are warm and well-perfused NEUROLOGICAL: Cranial nerves II through XII appear to be grossly intact. Moves all 4 extremities spontaneously. Strength appears equal and symmetric. Procedures: GENERAL: Elderly female, lying in bed, intubated, sedated, arousable HEENT: Normocephalic. Atraumatic. Pupils equal, round, reactive, conjugate. Mucous membranes are moist NECK: Trachea is midline. There is no JVD. Right IJ sheath in place, dressing clean dry and intact. CHEST: Intubated. PSV 10/5/40 percent. SPO2 100%. Sternal wound VAC in place which appears clean and dry. 2 chest tubes exit subxiphoid with a minimal amount of sanguinous output. CARDIOVASCULAR: Normal rate of 66, regular rhythm. Appears sinus. CVP of 9 ABDOMEN: Soft, nontender, nondistended. No guarding. MUSCULOSKELETAL: Pulses 2+. No peripheral edema. Extremities are warm and well -perfused NEUROLOGICAL: RASS -2. Awakens to voice and follows simple commands by squeezing hands nodding head. Moves all extremities. No focal deficits. Assessment and Plan - Assessment and Plan Plan: Neuro/Psych: Depressive disorder NOS Continue Escitalopram 10 mg daily/home medication for depression Acetaminophen 650 mg every 6 hours as needed fever Hydrocodone/acetaminophen 5/325 1 tablet every 4 hours as needed pain. Fentanyl 25 mg IV every 8 hours as needed breakthrough pain. Zolpidem 5 mg at night as needed insomnia Lorazepam 0.5 mg every 8 hours as needed anxiety CV: Status post mitral valve replacement with maze procedure day #[address] Mejia Cardiogenic shock by Foster cardiac index calculations resolving Lactic acidosis -resolved Essential hypertension Paroxysmal atrial fibrillation History of diastolic heart failure Postoperative management per CT surgery for chest tube Amiodarone 400 mg 3 times daily initiated by CT surgery Aspirin 81 mg daily to be continued Hydralazine 100 mg twice daily to be continued On losartan 100 mg daily at home? Currently on hold Serial lactates have cleared- 1.1 Resp: Continue with oxygen keep sats >92%. Incentive spirometry while awake As needed albuterol/ipratropium aerosols every 2 hours as needed dyspnea Monitor CT drainage GI: Hypoalbuminemia Cardiac/diabetic diet per CT surgery Pantoprazole for GI prophylaxis Docusate sodium 100 mg twice daily for bowel regimen : Incontinence Continue oxybutynin 5 mg daily/home medication Maintain Bronson catheter Endo: Diabetes mellitus hemoglobin A1c 6.2 Hypothyroidism Insulin drip/sliding scale per CT surgery to maintain euglycemia Resume glipizide 5 mg twice daily/home medication On levothyroxine 100 mcg by mouth daily. TSH elevated at 13.6. Renal: Acute kidney injury Oliguria Monitor renal function, I/O's, electrolytes replacement as needed. Avoid nephrotoxins Cr: 2.27 today from 2.50 On Lasix 40mg BID Renal ultrasound : No hydronephrosis Urine eosinophils negative. Urine sodium was less than 5. Prerenal indices. Patient appears to been adequately volume resuscitate. Heme: Leukocytosis Normocytic anemia Thrombocytopenia Elevated PTT Low fibrinogen s/p Transfusion one PRBC with 1 pack platelets Monitor CBC and coags daily. Follow trends ID: Postoperative antibiotics with cefazolin 1 g IV every 8 hours [address] surgery MSK: Elevated BMI Weight loss encouraged. PT evaluate and treat Access -Right IJ Cordis with dual-lumen catheter day #3 placed in OR 10/23 Prophylaxis -GI -pantoprazole -DVT -TEDS - pharmacological proph when ok with CTS Will sign off Level 2
[2017-10-26] MEDS ORDERED: Amiodarone 200 MG Tablet PO SCH (21:00)
[2017-10-26 22:06] LABS: Calcium 8.4 mg/dL (8.5-10.1); Carbon Dioxide 23.1 meq/L (21.0-32.0)
[2017-10-27] MEDS: Acetaminophen 325 MG Tablet PO PRN ×3 (00:30→17:25)
[2017-10-27 05:46] LABS: INR 1.1 Ratio; Prothrombin Time 11.4 sec (9.8-11.6)
[2017-10-27] MEDS: Levothyroxine 100 MCG Tablet PO SCH (06:06)
[2017-10-27] MEDS: glipiZIDE 5 MG Tablet PO SCH ×2 (08:54→11:56)
[2017-10-27] MEDS: Insulin NovoLOG Aspart Correctional Sugar Inj SQ SCH ×4 (08:55→21:54)
[2017-10-27 08:57] LABS: Hematocrit 31.4 % (35.0-46.0); Hemoglobin 10.4 gm/dL (11.6-15.3); Mean Corpuscular Hemoglobin 28.2 pg (27.0-34.0); Mean Corpuscular Volume 85.4 fL (80.0-100.0); Mean Platelet Volume 9.9 fL (7.0-11.0); Platelet Count 77 th/mm3 (150-450); Red Blood Count 3.68 mil/mm3 (4.00-5.30); Red Cell Distribution Width 17.3 % (11.6-17.2); White Blood Count 10.9 th/mm3 (4.0-11.0)
[2017-10-27] MEDS: Escitalopram 10 MG Tablet PO SCH (08:57)
[2017-10-27] MEDS: Docusate Sodium 100 MG Capsule PO SCH ×2 (08:57→21:53)
[2017-10-27] MEDS: Multivitamin/Minerals Therapeutic Tablet PO SCH (08:57)
[2017-10-27] MEDS: Polyethylene Glycol 3350 17 GM Packet PO SCH (08:58)
[2017-10-27] MEDS ORDERED: amLODIPine 5 MG Tablet PO SCH (09:00)
[2017-10-27 09:15] LABS: Calcium 8.4 mg/dL (8.5-10.1); Carbon Dioxide 24.9 meq/L (21.0-32.0)
[2017-10-27] MEDS ORDERED: hydrALAZINE HCl Inj 20 MG/ML Vial IV.PUSH PRN (16:23)
[2017-10-27] MEDS ORDERED: amLODIPine 5 MG Tablet PO ONE (16:24)
--- NOTE | 2017-10-27 16:45 | P.PNCA ---
- Note Subjective/Hospital Course: A 77-year-old patient of Dr. Alondra Preston, Dr. Abdi from [place]. The patient apparently has had symptoms of shortness of breath, not feeling well, had some nausea and palpitations for the past 1 month. She has a history of hypothyroidism. She has had her levothyroxine adjusted. She has been also feeling fatigued and weak for over a week. Apparently, she was very sleepy. The son brought her into Dr. Preston' office. EKG showed new onset of atrial fibrillation. She had again been complaining of the palpitations and was concerned that it may have been due to her elevated free T4. She underwent evaluation at [facility], which included 2-D echocardiogram, which showed an EF of 50-55%, mild LVH. The aortic valve was calcified with possible mild to moderate stenosis. The mitral valve had severe mitral stenosis, concern for mitral valve stenosis and severe mitral regurgitation, moderate tricuspid regurgitation. RV systolic pressure is 52. CHET showed severe mitral regurgitation, moderate with aortic valve of 1.3, mild to moderate aortic insufficiency. She underwent cardiac catheterization, which showed nonobstructive coronary disease, severe mitral regurgitation, elevated RV pressures. The right atrium was 25. Pulmonary capillary wedge pressure was 50. PA pressure 52/30. Cardiac output of 3.4 with an index of 1.7. The patient was transferred as per the request to be evaluated by Dr. Kourtney Mejia. PAST MEDICAL HISTORY: New onset of atrial fibrillation, some severe mitral regurgitation with some mitral stenosis, aortic stenosis, moderate tricuspid regurgitation, elevated PA pressures, hypothyroidism, diabetes mellitus, obstructive sleep apnea. She uses a CPAP machine. surgery 10/23 MVR with a 25 Magna ease tissue valve MAZE procedure (complete) CHET 10/24/17 Doing well. c/o incisional pain 10/25/17 Overall appears to be better this morning. She has developed some renal insufficiency but urine output is improving. She is anemic this morning as well. 10/26 off all pressors and insulin gtt BP stable , unable to start BB 2/2 bradycardia PLT 63K / ASA on hold / will need to start coumadin prior to discharge / INR 2- 2.5 x 6 weeks / tissue valve discussed with family, pt will need rehab at discharge PT/OT/ OOB leave chest tubes in today / drained 150cc/ 12hrs transfer to stepdown 10/27 chest tube dc without difficulty transfer to stepdown dc cvc line , start coumadin today also low dose ASA, hold PLT<75K pulm toileting Objective: Vital Signs - 24 hr 10/26/17 19:00 10/26/17 20:54 10/26/17 23:00 Temperature 97.9 F Pulse Rate 53 L 56 L 51 L Respiratory Rate 22 20 Blood Pressure 138/67 Pulse Oximetry 97 10/27/17 00:00 10/27/17 03:00 10/27/17 04:00 Temperature 97.8 F 97.5 F L Pulse Rate 59 L 62 Respiratory Rate 22 20 Blood Pressure 145/65 H 144/76 H Pulse Oximetry 96 96 10/27/17 07:00 10/27/17 08:46 10/27/17 11:00 Temperature 97.7 F 98.2 F Pulse Rate 59 L 66 60 Respiratory Rate 20 18 18 Blood Pressure 157/77 H 165/83 H Pulse Oximetry 96 98 10/27/17 13:01 10/27/17 14:00 10/27/17 15:00 Temperature 98.1 F Pulse Rate 62 70 65 Respiratory Rate 18 Blood Pressure 171/87 H Pulse Oximetry 95 10/27/17 16:00 Temperature Pulse Rate 61 Respiratory Rate Blood Pressure Pulse Oximetry GENERAL: A&O x 3 , more awake and alert SKIN: Warm and dry. prevena dressing to chest HEAD: Normocephalic. EYES: No scleral icterus. No injection or drainage. NECK: Supple, trachea midline. No JVD or lymphadenopathy. CARDIOVASCULAR: Regular rate and rhythm without murmurs, gallops, or rubs. RESPIRATORY: Breath sounds equal bilaterally. No accessory muscle use. diminished in the bases GASTROINTESTINAL: Abdomen soft, non-tender, nondistended. MUSCULOSKELETAL: No cyanosis, or edema. BACK: Nontender without obvious deformity. No CVA tenderness. Labs: Laboratory Results - last 12 hr 10/27/17 10/27/17 10/27/17 05:15 05:49 08:30 WBC 10.9 RBC 3.68 L Hgb 10.4 L Hct 31.4 L MCV 85.4 MCH 28.2 MCHC 33.0 RDW 17.3 H Plt Count 77 L MPV 9.9 PT 11.4 INR 1.1 Sodium Potassium Chloride Carbon Dioxide Anion Gap BUN Creatinine Estimated GFR POC Glucose 99 Random Glucose Calcium 10/27/17 10/27/17 10/27/17 08:30 08:30 12:05 WBC RBC Hgb Hct MCV MCH MCHC RDW Plt Count MPV PT INR Sodium 140 Potassium 4.0 Chloride 104 Carbon Dioxide 24.9 Anion Gap 11 BUN 55 H Creatinine 1.71 H Estimated GFR 29 L POC Glucose 134 H 186 H Random Glucose 120 H Calcium 8.4 L Result Diagrams: 10/27/17 08:30 10/27/17 08:30 Telemetry: AFib slow vent response no BB , no amiodarone - Plan (2) Atrial fibrillation Plan: start coumadin, will need for 6 weeks INR 2-3 for MVR tissue then can change to eliquis / vs xarelto for her afib (3) Mitral regurgitation Plan: mitral valve replacement 25 Magna ease tissue valve will need coumadin x 6 weeks (4) Diastolic heart failure Plan: weaned off milrinone resume diuresis / when renal function improves (6) S/P MVR (mitral valve replacement) Plan: OOB ambulate PT/OT pulm toileting start couamdin when pLT improved ASA (7) Acute blood loss as cause of postoperative anemia Plan: s/p 4 units PRBC and one pack PLT
--- NOTE | 2017-10-27 20:57 | ECG ---
Date Performed: 10/26/2017 Time Performed: 19:16:14 PTAGE: 77 years EKG: Atrial fibrillation with slow ventricular response Prolonged QT interval Lateral ST-T es are nonspecific Low QRS voltages in precordial leads Abnormal ECG PREVIOUS TRACING : 10/24/2017 05.06 No significant change when compared with previous DOCTOR: Jose L Recinos Interpretating Date/Time 10/27/2017 20:55:42
[2017-10-27] MEDS: Metoprolol Tartrate 25 MG Tablet PO SCH (21:53)
[2017-10-28 03:59] LABS: Hematocrit 32.4 % (35.0-46.0); Hemoglobin 10.8 gm/dL (11.6-15.3); Mean Corpuscular HGB Conc 33.2 % (32.0-36.0); Mean Corpuscular Hemoglobin 28.4 pg (27.0-34.0); Mean Corpuscular Volume 85.5 fL (80.0-100.0); Mean Platelet Volume 10.2 fL (7.0-11.0); Platelet Count 90 th/mm3 (150-450); Red Blood Count 3.79 mil/mm3 (4.00-5.30); Red Cell Distribution Width 16.9 % (11.6-17.2); White Blood Count 12.7 th/mm3 (4.0-11.0)
[2017-10-28 04:06] LABS: INR 1.1 Ratio; Prothrombin Time 11.2 sec (9.8-11.6)
[2017-10-28 04:24] LABS: Calcium 8.9 mg/dL (8.5-10.1); Carbon Dioxide 23.9 meq/L (21.0-32.0); Magnesium 2.4 mg/dL (1.5-2.5)
--- NOTE | 2017-10-28 05:06 | XR ---
EXAM DATE: 10/28/2017 5:02 AM EDT AGE/SEX: 77 years / Female INDICATIONS: . CLINICAL DATA: This is the patient's subsequent encounter. Patient reports that signs and symptoms h ave been present for 1 week and indicates a pain score of 0/10. MEDICAL/SURGICAL HISTORY: . Cardiovascular disease. CABG. COMPARISON: [facility] [place] 1V SINGLE AP, 10/26/2017. . FINDINGS: Cardiomegaly with median sternotomy and previous mitral valve replacement. Basilar airspace disease s lightly increased from October 26. Bilateral effusions remain. No pneumothorax. CONCLUSION: Slight increase in basilar airspace disease since October 26. Electronically signed by: Sarthak Frey MD 10/28/2017 5:04 AM EDT
[2017-10-28] MEDS: Levothyroxine 100 MCG Tablet PO SCH (05:09)
[2017-10-28] MEDS: Metoprolol Tartrate 25 MG Tablet PO SCH ×2 (09:51→21:27)
[2017-10-28] MEDS: Escitalopram 10 MG Tablet PO SCH (09:53)
[2017-10-28] MEDS: Polyethylene Glycol 3350 17 GM Packet PO SCH (09:54)
[2017-10-28] MEDS: Docusate Sodium 100 MG Capsule PO SCH ×2 (09:54→21:27)
[2017-10-28] MEDS: Multivitamin/Minerals Therapeutic Tablet PO SCH (09:55)
[2017-10-28] MEDS: amLODIPine 5 MG Tablet PO SCH (09:55)
--- NOTE | 2017-10-28 10:52 | P.PNCA ---
- Note Subjective/Hospital Course: A 77-year-old patient of Dr. Alondra Preston, Dr. Abdi from [place]. The patient apparently has had symptoms of shortness of breath, not feeling well, had some nausea and palpitations for the past 1 month. She has a history of hypothyroidism. She has had her levothyroxine adjusted. She has been also feeling fatigued and weak for over a week. Apparently, she was very sleepy. The son brought her into Dr. Preston' office. EKG showed new onset of atrial fibrillation. She had again been complaining of the palpitations and was concerned that it may have been due to her elevated free T4. She underwent evaluation at [facility], which included 2-D echocardiogram, which showed an EF of 50-55%, mild LVH. The aortic valve was calcified with possible mild to moderate stenosis. The mitral valve had severe mitral stenosis, concern for mitral valve stenosis and severe mitral regurgitation, moderate tricuspid regurgitation. RV systolic pressure is 52. CHET showed severe mitral regurgitation, moderate with aortic valve of 1.3, mild to moderate aortic insufficiency. She underwent cardiac catheterization, which showed nonobstructive coronary disease, severe mitral regurgitation, elevated RV pressures. The right atrium was 25. Pulmonary capillary wedge pressure was 50. PA pressure 52/30. Cardiac output of 3.4 with an index of 1.7. The patient was transferred as per the request to be evaluated by Dr. Kourtney Mejia. PAST MEDICAL HISTORY: New onset of atrial fibrillation, some severe mitral regurgitation with some mitral stenosis, aortic stenosis, moderate tricuspid regurgitation, elevated PA pressures, hypothyroidism, diabetes mellitus, obstructive sleep apnea. She uses a CPAP machine. surgery 10/23 MVR with a 25 Magna ease tissue valve MAZE procedure (complete) CHET 10/24/17 Doing well. c/o incisional pain 10/25/17 Overall appears to be better this morning. She has developed some renal insufficiency but urine output is improving. She is anemic this morning as well. 10/26 off all pressors and insulin gtt BP stable , unable to start BB 2/2 bradycardia PLT 63K / ASA on hold / will need to start coumadin prior to discharge / INR 2- 2.5 x 6 weeks / tissue valve discussed with family, pt will need rehab at discharge PT/OT/ OOB leave chest tubes in today / drained 150cc/ 12hrs transfer to stepdown 10/27 chest tube dc without difficulty transfer to stepdown dc cvc line , start coumadin today also low dose ASA, hold PLT<75K pulm toileting 10/28 CXR noted , some atelectasis / continue aggressive pulm toileting eval for rehab placement gentle diuresis coumadin today 2-2.5 x 6 weeks resume losartan for BP Objective: Vital Signs - 24 hr 10/27/17 11:00 10/27/17 13:01 10/27/17 14:00 Temperature 98.2 F Pulse Rate 60 62 70 Respiratory Rate 18 Blood Pressure 165/83 H Pulse Oximetry 98 10/27/17 15:00 10/27/17 16:00 10/27/17 17:00 Temperature 98.1 F Pulse Rate 65 61 69 Respiratory Rate 18 Blood Pressure 171/87 H Pulse Oximetry 95 10/27/17 17:27 10/27/17 19:00 10/27/17 20:00 Temperature 97.9 F Pulse Rate 72 74 74 Respiratory Rate 18 Blood Pressure 162/77 H Pulse Oximetry 95 10/27/17 20:45 10/27/17 21:00 10/27/17 22:00 Temperature Pulse Rate 79 70 70 Respiratory Rate 22 Blood Pressure Pulse Oximetry 93 L 10/27/17 23:00 10/28/17 00:00 10/28/17 01:00 Temperature 98.5 F Pulse Rate 61 56 L 56 L Respiratory Rate 18 Blood Pressure 148/71 H Pulse Oximetry 95 10/28/17 02:00 10/28/17 03:00 10/28/17 04:00 Temperature 98.6 F Pulse Rate 56 L 58 L 62 Respiratory Rate 18 Blood Pressure 165/77 H Pulse Oximetry 95 10/28/17 05:00 10/28/17 06:00 Temperature Pulse Rate 66 67 Respiratory Rate Blood Pressure Pulse Oximetry GENERAL: A&O x 3 SKIN: Warm and dry. prevena dressing to chest HEAD: Normocephalic. EYES: No scleral icterus. No injection or drainage. NECK: Supple, trachea midline. No JVD or lymphadenopathy. CARDIOVASCULAR: Regular rate and rhythm without 2/6 systolic murmur, gallops, or rubs. RESPIRATORY: Breath sounds equal bilaterally. No accessory muscle use. diminished in bases GASTROINTESTINAL: Abdomen soft, non-tender, nondistended. MUSCULOSKELETAL: No cyanosis, or edema. BACK: Nontender without obvious deformity. No CVA tenderness. Labs: Laboratory Results - last 12 hr 10/28/17 10/28/17 10/28/17 03:22 03:22 03:22 WBC 12.7 H RBC 3.79 L Hgb 10.8 L Hct 32.4 L MCV 85.5 MCH 28.4 MCHC 33.2 RDW 16.9 Plt Count 90 L MPV 10.2 PT 11.2 INR 1.1 Sodium 138 Potassium 4.0 Chloride 104 Carbon Dioxide 23.9 Anion Gap 10 BUN 44 H Creatinine 1.19 H Estimated GFR 44 L Random Glucose 137 H Calcium 8.9 Magnesium 2.4 Result Diagrams: 10/28/17 03:22 10/28/17 03:22 Cardiovascular: afib - Plan (2) Atrial fibrillation Plan: start coumadin, will need for 6 weeks INR 2-3 for MVR tissue then can change to eliquis / vs xarelto for her afib / Dr Mejia to discuss with Dr Jesus Abdi (3) Mitral regurgitation Plan: mitral valve replacement 25 Magna ease tissue valve will need coumadin x 6 weeks (4) Diastolic heart failure Plan: resume diuresis (6) S/P MVR (mitral valve replacement) Plan: OOB ambulate PT/OT pulm toileting start couamdin ASA (7) Acute blood loss as cause of postoperative anemia Plan: s/p 4 units PRBC and one pack PLT HGB 10.8 stable
[2017-10-28] MEDS: Insulin NovoLOG Aspart Correctional Sugar Inj SQ SCH ×4 (12:49→21:24)
[2017-10-29 05:28] LABS: INR 1.1 Ratio; Prothrombin Time 10.9 sec (9.8-11.6)
[2017-10-29 05:35] LABS: Calcium 8.7 mg/dL (8.5-10.1); Carbon Dioxide 25.9 meq/L (21.0-32.0); Potassium 4.4 meq/L (3.5-5.1)
[2017-10-29] MEDS: Levothyroxine 100 MCG Tablet PO SCH (06:47)
[2017-10-29] MEDS: amLODIPine 5 MG Tablet PO SCH (09:26)
[2017-10-29] MEDS: Multivitamin/Minerals Therapeutic Tablet PO SCH (09:27)
[2017-10-29] MEDS: Metoprolol Tartrate 25 MG Tablet PO SCH ×2 (09:28→22:07)
[2017-10-29] MEDS: Escitalopram 10 MG Tablet PO SCH (09:28)
[2017-10-29] MEDS: Insulin NovoLOG Aspart Correctional Sugar Inj SQ SCH ×4 (09:32→22:06)
[2017-10-29] MEDS: Docusate Sodium 100 MG Capsule PO SCH ×2 (09:32→22:07)
[2017-10-29] MEDS: Polyethylene Glycol 3350 17 GM Packet PO SCH (09:32)
[2017-10-29] MEDS: glipiZIDE 5 MG Tablet PO SCH ×2 (12:27→12:28)
[2017-10-29] MEDS ORDERED: Dextrose 50% in Water 50 ML Vial IV.PUSH PRN ×2 (15:17→16:12)
--- NOTE | 2017-10-29 15:52 | P.DS ---
Date of admission: 10/21/17 18:45 Primary care physician: Dr Alondra Villalta Attending physician on discharge: Kourtney Mejia Anticipated date of discharge: 10/29/17 Brief History from admission: A 77-year-old patient of Dr. Alondra Villalta, Dr. Barrett from [place]. The patient apparently has had symptoms of shortness of breath, not feeling well, had some nausea and palpitations for the past 1 month. She has a history of hypothyroidism. She has had her levothyroxine adjusted. She has been also feeling fatigued and weak for over a week. Apparently, she was very sleepy. The son brought her into Dr. Villalta' office. EKG showed new onset of atrial fibrillation. She had again been complaining of the palpitations and was concerned that it may have been due to her elevated free T4. She underwent evaluation at [facility], which included 2-D echocardiogram, which showed an EF of 50-55%, mild LVH. The aortic valve was calcified with possible mild to moderate stenosis. The mitral valve had severe mitral stenosis, concern for mitral valve stenosis and severe mitral regurgitation, moderate tricuspid regurgitation. RV systolic pressure is 52. CHET showed severe mitral regurgitation, moderate with aortic valve of 1.3, mild to moderate aortic insufficiency. She underwent cardiac catheterization, which showed nonobstructive coronary disease, severe mitral regurgitation, elevated RV pressures. The right atrium was 25. Pulmonary capillary wedge pressure was 50. PA pressure 52/30. Cardiac output of 3.4 with an index of 1.7. The patient was transferred as per the request to be evaluated by Dr. Kourtney Mejia. PAST MEDICAL HISTORY: New onset of atrial fibrillation, some severe mitral regurgitation with some mitral stenosis, aortic stenosis, moderate tricuspid regurgitation, elevated PA pressures, hypothyroidism, diabetes mellitus, obstructive sleep apnea. She uses a CPAP machine. DS: Diagnosis - Discharge Diagnosis (1) S/P Maze operation for atrial fibrillation Status: Chronic (2) Atrial fibrillation Status: Chronic (3) Mitral regurgitation Status: Chronic (4) Diastolic heart failure Status: Chronic (5) Class 3 congestive heart failure Status: Chronic (6) S/P MVR (mitral valve replacement) Status: Acute (7) Acute blood loss as cause of postoperative anemia Status: Acute DS: Medications - Discharge Medications Prescriptions: acetaminophen 650 mg PO Q6H PRN #30 tab PRN Reason: Pain Scale 1 To 2 aspirin 81 mg PO DAILY #30 tab docusate sodium [DOK] 100 mg PO BID #60 cap metoprolol tartrate 12.5 mg PO BID #30 tab tcysotww-fjme-SK-calcium-mins [Thera M Plus (ferrous fumarat)] 1 tab PO DAILY # 30 tab warfarin [Coumadin] 5 mg PO DAILY@1600 #30 tab DS: Summary Hospital Course: surgery 10/23 MVR with a 25 Magna ease tissue valve MAZE procedure (complete) CHET 10/24/17 Doing well. c/o incisional pain 10/25/17 Overall appears to be better this morning. She has developed some renal insufficiency but urine output is improving. She is anemic this morning as well. 10/26 off all pressors and insulin gtt BP stable , unable to start BB 2/2 bradycardia PLT 63K / ASA on hold / will need to start coumadin prior to discharge / INR 2- 2.5 x 6 weeks / tissue valve discussed with family, pt will need rehab at discharge PT/OT/ OOB leave chest tubes in today / drained 150cc/ 12hrs transfer to stepdown 10/27 chest tube dc without difficulty transfer to stepdown dc cvc line , start coumadin today also low dose ASA, hold PLT<75K pulm toileting 10/28 CXR noted , some atelectasis / continue aggressive pulm toileting eval for rehab placement gentle diuresis coumadin today 2-2.5 x 6 weeks resume losartan for BP - Time Spent with Patient Total time spent providing and/or coordinating discharge services: - Quality: VTE Deep Vein Thrombosis/Pulmonary Embolism Present on Admission: No Exam Vital signs: Vital Signs 10/28/17 16:00 10/28/17 17:00 10/28/17 18:00 Temperature Pulse Rate 77 75 78 Respiratory Rate Blood Pressure Pulse Oximetry 10/28/17 19:57 10/28/17 20:30 10/28/17 21:00 Temperature Pulse Rate 70 55 L Respiratory Rate 20 Blood Pressure 173/79 H Pulse Oximetry 99 100 10/28/17 23:54 10/29/17 01:00 10/29/17 03:57 Temperature 98 F 97.8 F Pulse Rate 62 54 L 52 L Respiratory Rate 18 18 Blood Pressure 173/77 H 165/78 H Pulse Oximetry 100 100 10/29/17 05:00 10/29/17 07:00 10/29/17 08:00 Temperature 98.2 F Pulse Rate 54 L 68 68 Respiratory Rate 18 Blood Pressure 165/65 H Pulse Oximetry 100 10/29/17 09:00 10/29/17 10:00 10/29/17 11:00 Temperature 98.1 F Pulse Rate 67 66 66 Respiratory Rate 18 Blood Pressure 154/62 H Pulse Oximetry 94 L 10/29/17 12:00 10/29/17 13:00 10/29/17 14:00 Temperature Pulse Rate 62 64 66 Respiratory Rate Blood Pressure Pulse Oximetry Intake & Output 10/28/17 10/29/17 10/29/17 18:59 06:59 18:59 Intake Total 975 / 975 240 / 240 Output Total 750 / 750 Balance 225 / 225 240 / 240 Weight 96.8 kg 99 kg Intake: Oral 975 / 975 240 / 240 Output: Urine 750 / 750 Other: # Voids 2 # Bowel Movements 2 - Constitutional no acute distress - Routine HEENT Exam Head: Present: normocephalic Eye: Present: EOMI ENT: Present: mucous membranes moist - Routine Chest/Breast/Axilla Exam Chest wall: Present: tenderness - Routine Respiratory Exam Present: CTA bilaterally - Routine Cardiovascular Exam Present: RRR, S1, S2, murmur - Routine Abdominal Exam Present: soft, normoactive bowel sounds - Routine Extremities Exam Present: full ROM, pulses intact, normal capillary refill - Routine Neurological Exam Present: alert, oriented X3, CN II-XII intact Results Procedures completed during hospitalization: 10/23 MVR with a 25 Magna ease tissue valve MAZE procedure (complete) CHET Completed studies during hospitalization: Pending at discharge 10/23/17 13:46 Surgical [PTH] Routine Labs on day of discharge: Labs from last 24 hours 10/29/17 10/29/17 10/29/17 12:12 04:28 04:28 PT 10.9 INR 1.1 Sodium 139 Potassium 4.4 Chloride 104 Carbon Dioxide 25.9 Anion Gap 9 BUN 43 H Creatinine 1.23 H Estimated GFR 43 L POC Glucose 190 H Random Glucose 111 H Calcium 8.7 10/28/17 10/28/17 21:22 16:46 PT INR Sodium Potassium Chloride Carbon Dioxide Anion Gap BUN Creatinine Estimated GFR POC Glucose 126 H 139 H Random Glucose Calcium - Impressions ITS Impressions Carotid Doppler Study 10/22/17 10:20 CONCLUSION: 1. Right Internal Carotid Artery: Findings indicate <50% stenosis. 2. Left Internal Carotid Artery: Findings indicate <50% stenosis. Abdomen/Bladder Ultrasound 10/25/17 00:00 CONCLUSION: 1. The renal parenchyma appears abnormally increased echotexture bilaterally consistent with chronic medical renal disease. No evidence of hydronephrosis or concerning mass. Chest X-Ray 10/28/17 06:00 CONCLUSION: Slight increase in basilar airspace disease since October 26. Discharge Plan - Discharge Disposition Patient Disposition: Discharge to SNF - Discharge Condition Condition: Good - Discharge Order Discharge Orders: Discharge Order (Routine); Ordered 10/29/17 Ordered By: Sondra Snyder - Discharge Details Anticipated Discharge Date: 10/29/17 - Physicians Team Primary Care Provider: Primary Care Elizabeth,Mary Lou Attending Provider: Kourtney Mejia Other Providers: [employer],Insurance ; Rios Alcantar MD ; [facility] - Rxs /Orders / Referrals /Forms Prescriptions: New acetaminophen 325 mg Tablet 650 mg PO Q6H PRN (Reason: Pain Scale 1 To 2) Qty: 30 RF: 0 amlodipine [Norvasc] 10 mg Tablet 10 mg PO DAILY Qty: 30 RF: 2 aspirin 81 mg Tablet,Chewable 81 mg PO DAILY Qty: 30 RF: 2 docusate sodium [DOK] 100 mg Capsule 100 mg PO BID Qty: 60 RF: 0 escitalopram oxalate 10 mg Tablet 10 mg PO DAILY RF: 0 glipizide [Glucotrol] 5 mg Tablet 5 mg PO BID@0700,1800 RF: 0 levothyroxine [Synthroid] 100 mcg Tablet 100 mcg PO DAILY@0600 RF: 0 metoprolol tartrate 25 mg Tablet 12.5 mg PO BID Qty: 30 RF: 2 sekxinah-gymz-PR-calcium-mins [Thera M Plus (ferrous fumarat)] 9 mg iron-400 mcg Tablet 1 tab PO DAILY Qty: 30 RF: 2 oxybutynin chloride 5 mg Tablet 5 mg PO DAILY RF: 0 warfarin [Coumadin] 5 mg Tablet 5 mg PO DAILY@1600 Qty: 30 RF: 2 Continue losartan 100 mg Tablet 100 mg PO DAILY Ambulatory Orders / Order Sets / DME: Echo 2D Comp with doppler (Routine) Timeframe: 2 Weeks Location: Determined by Patient Ordered By: Sondra Snyder XR chest 2V PA&LAT (Routine) Timeframe: 2 Weeks Location: Determined by Patient Ordered By: Sondra Snyder Basic Metabolic Panel (Routine) Timeframe: 2 Weeks Location: Determined by Patient Ordered By: Sondra Snyder Complete Blood Count NO Diff (Routine) Timeframe: 2 Weeks Location: Determined by Patient Ordered By: Sondra Snyder Referrals: KAYLEE BARRETT [Other] - See Instructions (APPOINTMENT IS ON DECEMBER 03 @2:30PM) Kourtney Mejia MD [Physician] - See Instructions ( Your appointment has been scheduled for [11/12/17] at [11:30] If you cannot make this appointment, please call the office to reschedule ) Primary Care Mary Lou Johnson [Primary Care Provider] - See Instructions ([facility] WILL CALL OFFICE FOR APPOINTMENT WITH DR. VILLALTA) - Discharge Instructions Additional Instructions: Incentive spirometry Q1 hr x 10, while awake, also use acapella device hourly whole awake Sternal Breast Bone Precautions: NO pushing or pulling, ( pt must use sternal pillow to support chest with all activities and with coughing ( takes up to 3 months breast bone to heal ) All females to wear sternal bra , launder as needed Daily incision care: ok to shower daily, no tub bath. Wash all incisions with liquid dial soap, clean wash cloth to each site, rinse and pat dry. Observe for any signs of infection, such as drainage which is dark yellow, alegria, green or foul smelling. Immediately report to the surgeon any drainage from the chest incision, or legs, and for any abnormal drainage from the chest tube sites. Notify surgeon if any temp >101.5 degrees F. When specialty dressing removed/ or if you do not have one, continue to shower daily as above, then rinse and pat incision dry and paint with betadine daily x 5 days. Allow steri strips to fall off if you have any. Avoid lotions, creams, salves, oils, etc. for the first month Please see attached forms for additional instructions regarding post Open Heart specialty wound vacuum dressings. LEONARD or Prevena , Dressing to be removed by Nursing staff on __10/30/[address] Mejia patients , please obtain CBC, BMP, PA & Lat CXR in 2 weeks, results to Dr. Mejia ( prescription will be given) ( ) (Tele: [phone]) , Valve replacement pts will need 2decho in 2 weeks with results to Dr. Mejia . Please obtain 2 d echo at your sales forecast analyst office if possible F/U appointment: as per DC instructions: PCP in 2 weeks, CV surgeon 2 weeks, Pole Tester 3-4 weeks For any questions regarding incisions/ dressing / meds / post op care or above Symptoms, Thursday 8am-5pm Heart & Vascular Surgery Office ( Dr. Mcintosh & Dr. Mejai), After Hours / Nights (5pm -8am) Weekends and Holidays Please call [facility] Cardiac [facility] Unit (CIC) Charge Nurse - Post Discharge Care Plan Care Plan Goals: Discharge Care Plan Goals for Coronary Artery Bypass Surgery You have had Coronary Artery Bypass Graft Surgery (also called CABG, maday damon). This surgery created new pathways around blocked parts of your heart s blood vessels, allowing blood to reach your heart muscle. Directions to Meet your Goals: 1. Pain Relief: You will recover faster after surgery if your pain is kept under control: * Take pain medicine as directed by your doctor. * Dont be surprised if you feel sharp pains as your breastbone heals or if you have soreness in your incision during changes in weather. * Tell your doctor if you have questions about what youre feeling, if your medicines dont reduce your pain, or if you suddenly feel worse. 2. Activity: * Dont drive until your doctor says its OK. And never drive while taking opioid pain medicine. * Ask someone to stand nearby while you shower or do other activities, just in case you need help. * Weigh yourself every day, at the same time of day, and in the same kind of clothes. Quick weight gain can be a sign of a problem that needs your doctor's attention. * Follow your doctor's more specific weight restrictions. Dont lift anything heavier than 5 pounds. * Until approved by doctor, avoid mowing the lawn, vacuuming, driving, and doing other activities that could strain your breastbone. 3. Diet and Exercise: * Maintain a healthy weight. If needed, get help to loose extra pounds. * Avoid fatty and fried foods. Stick to lean meats, such as chicken or fish. * Cut back on salt: - Limit canned, dried, packaged, and fast foods. - Dont add salt to your food at the table. - Season foods with herbs instead of salt when you cook * Ask your healthcare provider when you can start a walking program: - If you havent already started a walking program in the hospital, begin with short walks (about 5 minutes) at home. Go a little longer each day. - Choose a safe place with a level surface, such as a local park or mall. - Wear supportive shoes to prevent injury to your knees and ankles. - Walk with someone. Its more fun and helps you stay with it. 4. Prevent Falls/Injury: * If you are unstable on your feet, remember to ask for help from others. * Avoid using very hot water while showering. It can affect your circulation and make you dizzy. * Free up your hands so that you can use them to keep balance. Use a elmira pack , apron, or pockets to carry things. * Arrange your household to keep the items you need handy. Keep everything else out of the way. * Remove items that may cause you to fall, such as throw rugs and electrical cords. * Use nonslip bath mats, grab bars, an elevated toilet seat, and a shower chair in your bathroom * Sit on a shower stool or chair when you shower to keep from falling. 5. Incision Care: Healing takes several weeks. * Check your incision daily for redness, swelling, tenderness, or drainage. * Prevent infection by washing your hands often. If an infection occurs, it will need to be treated right away. * Call your doctor right away if you think you may have an infection. Symptoms include a fever or an incision that leaks white, green, or yellow fluid. * Don't soak your incision in water until your doctor says its OK. This means no hot tubs, bathtubs, or swimming pools. * Follow your doctor's instructions for changing the dressing. * Dont rub the incision, or apply creams or lotions to it. 6. Follow-Up: Do Not miss your follow-up appointment. Keep up with all your appointments and yearly check ups When to call your doctor: Call your doctor right away if you have: Chest pain or a return of the heart symptoms you had before your surgery Fever of 100.4F (38C) or higher, or as directed by your doctor Signs of infection (redness, swelling, drainage, or warmth) at the incision site Shortness of breath Fainting Weight gain of more than 3 pounds in 1 day, more than 5 pounds in 1 week, or whatever weight gain you were told to report by your doctor New or increased swelling in your hands, feet, or ankles Unrelieved pain at the incision site(s) Changes in the location, type, or severity of pain Fast or irregular pulse Persistent abdominal pain Nausea Trouble urinating Any unusual bleeding Call 911: Call 911 right away if you have: Sudden onset of chest pain that is not relieved by medications Shortness of breath
[2017-10-29] MEDS ORDERED: Insulin NovoLOG Aspart Correctional Sugar Inj SQ SCH (17:00)
[2017-10-29] MEDS: Acetaminophen 325 MG Tablet PO PRN (22:04)
[2017-10-30 05:27] LABS: INR 1.5 Ratio; Prothrombin Time 15.3 sec (9.8-11.6)
[2017-10-30] MEDS: Levothyroxine 100 MCG Tablet PO SCH (05:53)
[2017-10-30] MEDS: Escitalopram 10 MG Tablet PO SCH (09:32)
[2017-10-30] MEDS: Multivitamin/Minerals Therapeutic Tablet PO SCH (09:32)
[2017-10-30] MEDS: amLODIPine 5 MG Tablet PO SCH (09:32)
[2017-10-30] MEDS: Docusate Sodium 100 MG Capsule PO SCH (09:33)
[2017-10-30] MEDS: Metoprolol Tartrate 25 MG Tablet PO SCH (09:33)
[2017-10-30] MEDS: Insulin NovoLOG Aspart Correctional Sugar Inj SQ SCH ×2 (11:48→15:32)
--- NOTE | 2017-10-30 13:00 | P.PNCA ---
- Note Subjective/Hospital Course: A 77-year-old patient of Dr. Alondra Preston, Dr. Abdi from [place]. The patient apparently has had symptoms of shortness of breath, not feeling well, had some nausea and palpitations for the past 1 month. She has a history of hypothyroidism. She has had her levothyroxine adjusted. She has been also feeling fatigued and weak for over a week. Apparently, she was very sleepy. The son brought her into Dr. Preston' office. EKG showed new onset of atrial fibrillation. She had again been complaining of the palpitations and was concerned that it may have been due to her elevated free T4. She underwent evaluation at [facility], which included 2-D echocardiogram, which showed an EF of 50-55%, mild LVH. The aortic valve was calcified with possible mild to moderate stenosis. The mitral valve had severe mitral stenosis, concern for mitral valve stenosis and severe mitral regurgitation, moderate tricuspid regurgitation. RV systolic pressure is 52. CHET showed severe mitral regurgitation, moderate with aortic valve of 1.3, mild to moderate aortic insufficiency. She underwent cardiac catheterization, which showed nonobstructive coronary disease, severe mitral regurgitation, elevated RV pressures. The right atrium was 25. Pulmonary capillary wedge pressure was 50. PA pressure 52/30. Cardiac output of 3.4 with an index of 1.7. The patient was transferred as per the request to be evaluated by Dr. Kourtney Mejia. PAST MEDICAL HISTORY: New onset of atrial fibrillation, some severe mitral regurgitation with some mitral stenosis, aortic stenosis, moderate tricuspid regurgitation, elevated PA pressures, hypothyroidism, diabetes mellitus, obstructive sleep apnea. She uses a CPAP machine. surgery 10/23 MVR with a 25 Magna ease tissue valve MAZE procedure (complete) CHET 10/24/17 Doing well. c/o incisional pain 10/25/17 Overall appears to be better this morning. She has developed some renal insufficiency but urine output is improving. She is anemic this morning as well. 10/26 off all pressors and insulin gtt BP stable , unable to start BB 2/2 bradycardia PLT 63K / ASA on hold / will need to start coumadin prior to discharge / INR 2- 2.5 x 6 weeks / tissue valve discussed with family, pt will need rehab at discharge PT/OT/ OOB leave chest tubes in today / drained 150cc/ 12hrs transfer to stepdown 10/27 chest tube dc without difficulty transfer to stepdown dc cvc line , start coumadin today also low dose ASA, hold PLT<75K pulm toileting 10/28 CXR noted , some atelectasis / continue aggressive pulm toileting eval for rehab placement gentle diuresis coumadin today 2-2.5 x 6 weeks resume losartan for BP 10/29 discharge summary completed 10/30 waiting on SNF bed, stable for discharge on room air Objective: Vital Signs - 24 hr 10/29/17 13:00 10/29/17 14:00 10/29/17 15:00 Temperature 98.0 F Pulse Rate 64 66 72 Respiratory Rate 18 Blood Pressure 160/58 H Pulse Oximetry 10/29/17 16:00 10/29/17 17:00 10/29/17 18:00 Temperature Pulse Rate 66 64 65 Respiratory Rate Blood Pressure Pulse Oximetry 10/29/17 19:00 10/29/17 19:30 10/29/17 20:00 Temperature 98.0 F Pulse Rate 56 L 58 L Respiratory Rate 20 Blood Pressure 171/78 H Pulse Oximetry 95 10/29/17 21:00 10/29/17 22:00 10/29/17 23:00 Temperature 97.5 F L Pulse Rate 56 L 56 L 58 L Respiratory Rate 20 Blood Pressure 174/79 H Pulse Oximetry 96 10/30/17 00:00 10/30/17 01:00 10/30/17 02:00 Temperature Pulse Rate 62 54 L 52 L Respiratory Rate Blood Pressure Pulse Oximetry 96 10/30/17 03:00 10/30/17 04:00 10/30/17 05:00 Temperature 96.7 F L Pulse Rate 50 L 54 L 68 Respiratory Rate 20 Blood Pressure 167/76 H Pulse Oximetry 95 10/30/17 06:00 10/30/17 07:00 10/30/17 08:30 Temperature 98.4 F Pulse Rate 72 85 Respiratory Rate 16 Blood Pressure 177/74 H Pulse Oximetry 94 L 94 L GENERAL: A&O x 3 SKIN: Warm and dry. incision intact and well approximated HEAD: Normocephalic. EYES: No scleral icterus. No injection or drainage. NECK: Supple, trachea midline. No JVD or lymphadenopathy. CARDIOVASCULAR: Regular rate and rhythm without murmurs, gallops, or rubs. RESPIRATORY: Breath sounds equal bilaterally. No accessory muscle use. GASTROINTESTINAL: Abdomen soft, non-tender, nondistended. MUSCULOSKELETAL: No cyanosis, or edema. BACK: Nontender without obvious deformity. No CVA tenderness. Labs: Laboratory Results - last 12 hr 10/30/17 10/30/17 10/30/17 04:43 07:46 11:42 PT 15.3 H INR 1.5 POC Glucose 109 189 H Result Diagrams: 10/28/17 03:22 10/29/17 04:28 - Plan (2) Atrial fibrillation Plan: start coumadin, will need for 6 weeks INR 2-3 for MVR tissue then can change to eliquis / vs xarelto for her afib / Dr Mejia to discuss with Dr Jesus Abdi (3) Mitral regurgitation Plan: mitral valve replacement 25 Magna ease tissue valve will need coumadin x 6 weeks (4) Diastolic heart failure Plan: resume diuresis (6) S/P MVR (mitral valve replacement) Plan: OOB ambulate PT/OT pulm toileting start nannetteamjessika ASA (7) Acute blood loss as cause of postoperative anemia Plan: s/p 4 units PRBC and one pack PLT HGB 10.8 stable
== END 2017-10-30 13:22 ==
LOC: HCPC 18:45 → HCVI 10-23 12:31 → HCPC 10-27 11:22
PROVIDERS: ADMIT Thoracic Surgery (Cardiothoracic Vascular Surgery); ATTEND Thoracic Surgery (Cardiothoracic Vascular Surgery)